=== PATIENT | female | born 1955 | race Caucasian/White ===

== ENCOUNTER → 2020-07-05 17:28 | Outpatient (CLI) | payer MEDICARE, SELFPAY ==
[2020-07-05 19:33] LABS: Coronavirus 19 IgG Antibody Negative (Negative); Coronavirus 19 IgM Antibody Negative (Negative)
== END ==
PROVIDERS: Visit Provider Specialist
DX: Z01.818 Encounter for other preprocedural examination (principal); Z20.822 Contact with and (suspected) exposure to COVID-19
CPT/HCPCS: 36415; 86328

== ENCOUNTER → 2020-07-07 19:53 | Outpatient (CLI) | payer MEDICARE, SELFPAY | PROVIDERS: PCP Internal Medicine Infectious Disease; Visit Provider Specialist | DX: G47.33 Obstructive sleep apnea (adult) (pediatric) (principal) | CPT/HCPCS: 95811 ==

== ENCOUNTER → 2020-09-14 17:46 | Outpatient (CLI) | payer MEDICARE, SELFPAY | PROVIDERS: PCP Nurse Practitioner Family; Visit Provider Nurse Practitioner Family | DX: G47.33 Obstructive sleep apnea (adult) (pediatric) (principal) | CPT/HCPCS: 94762 ==

== ENCOUNTER → 2021-08-08 15:08 | Outpatient (CLI) | payer MEDICARE, SELFPAY ==
--- NOTE | 2021-08-08 15:08 | CT_ITS ---
FINAL REPORT TECHNIQUE: Thin section axial CT images of the facial bones and sinuses were obtained without contrast. Coronal reformatted images were also obtained.This study was performed with techniques to keep radiation doses as low as reasonably achievable, (ALARA). Individualized dose reduction techniques using automated exposure control or adjustment of mA and/or kV according to the patient''''s size were employed. CLINICAL HISTORY: maxilly sinus pain FINDINGS: There is no evidence of mucosal thickening. No fluid levels are identified. The ostiomeatal units have an unremarkable appearance. There are bilateral rosa bullosa as a variant. There is mild leftward nasal septal deviation. No fracture or acute bony abnormality is identified. IMPRESSION: No focal abnormality identified of the sinuses. Reviewed, Interpreted and Dictated by Chance Mcmillan III, MD Transcribed by Keith Candelaria Authenticated by Chance Mcmillan III, MD on 08/08/2021 04:37:14 PM [facility]
== END ==
PROVIDERS: PCP Internal Medicine Infectious Disease; Visit Provider Otolaryngology
DX: J32.0 Chronic maxillary sinusitis (principal); R49.0 Dysphonia
CPT/HCPCS: 70486

== ENCOUNTER 2023-08-24 20:48 | Observation (INO) | payer MEDICARE, SELFPAY ==
[2023-08-24 21:09] VITALS: BMI 36.6
--- NOTE | 2023-08-24 21:12 | XR_ITS ---
PROCEDURE INFORMATION: Exam: XR Chest Exam date and time: 08/24/2023 9:26 PM Age: 67 years old Clinical indication: Shortness of breath; Additional info: SOA TECHNIQUE: Imaging protocol: Radiologic exam of the chest. Views: 2 views. Total images: 4 COMPARISON: CR CXR1VP XR chest portable 12/22/2017 10:09 PM FINDINGS: Tubes, catheters and devices: Status post cardiac loop recorder. Lungs: Diffuse accentuation of bronchovascular markings including bronchial wall thickening and suspect interstitial edema concerning for acute CHF/volume overload. No airspace consolidation. Pleural spaces: Small bilateral pleural effusions. No pneumothorax. Heart/Mediastinum: Unremarkable. No cardiomegaly. No mediastinal widening or hilar enlargement. Bones/joints: Osteopenia. Moderate degenerative changes thoracic spine. Soft tissues: Breast attenuation artifact. Other findings: Rotation to the right. IMPRESSION: 1. Acute CHF/volume overload. 2. Small bilateral pleural effusions.
[2023-08-24 21:15] VITALS: BP 181/54; PULSE 73; RESP 19; TEMP 37.2; O2SAT 96; BMI 48.8
--- NOTE | 2023-08-24 21:17 | ECG_ITS ---
APPROVED REPORT Exam: Resting ECG HR:68 bpm ECG Measurements Heart Rate 68 AXES WI 174 P 38 QRSd 86 QRS 41 QT 425 T -14 QTc 442 Conclusion SINUS RHYTHM NONSPECIFIC T-WAVE ABNORMALITY BORDERLINE ECG Electronically signed by : MACKENZIE VELAZQUEZ, 08/25/2023 05:50:28
--- NOTE | 2023-08-24 21:21 | ECG_ITS ---
APPROVED REPORT Exam: Resting ECG HR:68 bpm ECG Measurements Heart Rate 68 AXES AK 169 P 47 QRSd 88 QRS 31 QT 413 T 65 QTc 429 Conclusion SINUS RHYTHM LOW QRS VOLTAGE IN PRECORDIAL LEADS [QRS DEFLECTION < 1.0 mV IN CHEST LEADS] NONSPECIFIC T-WAVE ABNORMALITY BORDERLINE ECG Electronically signed by : KENNY MANN, 08/25/2023 01:25:00
[2023-08-24 21:49] LABS: Basophils # 0.1 K/mm3 (0-0.2); Basophils % 0.8 % (0.1-2.0); Eosinophils # 0.3 K/mm3 (0.0-0.4); Eosinophils % 2.6 % (0.1-12.0); Hematocrit 39.8 % (37.0-47.0); Hemoglobin 12.6 g/dL (12.2-16.2); Lymphocytes # 1.7 K/mm3 (0.7-4.5); Lymphocytes % 14.3 % (10-50); Mean Corpuscular HGB Conc 31.6 g/dL (31.8-35.4); Mean Corpuscular Hemoglobin 28.2 pg (27.0-31.2); Mean Corpuscular Volume 89.3 fl (81-99); Mean Platelet Volume 8.5 fl (7.4-10.4); Monocytes # 0.6 K/mm3 (0.1-1.0); Monocytes % 4.8 % (1.7-9.3); Neutrophils # 9.4 K/mm3 (1.8-7.8); Neutrophils % 77.5 % (37.0-80.0); Platelet Count 253 K/mm3 (142-424); Red Blood Count 4.46 M/mm3 (4.20-5.40); Red Cell Distribution Width 14.4 % (11.5-17.5); White Blood Count 12.2 K/mm3 (4.8-10.8)
[2023-08-24 21:54] LABS: Chloride 103 mmol/L (98-107)
[2023-08-24 21:55] LABS: Potassium 4.1 mmoL/L (3.5-5.1); Sodium 136 mmol/L (136-145)
[2023-08-24 21:57] LABS: Blood Urea Nitrogen 13 mg/dl (7-17); Creatinine Clearance Estimated 38 mL/min (50-200); Estimated Glomerular Filt Rate 62 ml/min (>60); GFR (African American) 75 ML/MIN (>60)
[2023-08-24 21:58] LABS: Alanine Aminotransferase 39 U/L (12-78); Albumin Level 3.7 g/dl (3.5-5.0); Albumin/Globulin Ratio 1.4 (1.1-1.8); Alkaline Phosphatase 104 U/L (38-126); Anion Gap 10.1 mEq/L (5-15); Aspartate Amino Transferase 46 U/L (14-36); Bilirubin,Total 1.2 mg/dl (0.2-1.3); Calcium 8.8 mg/dl (8.4-10.2); Carbon Dioxide 27 mmol/L (22.0-30.0); Globulin 2.6 g/dL (1.3-3.2); Glucose 247 mg/dl (74-100); Total Protein,Serum 6.3 g/dl (6.3-8.2)
[2023-08-24 22:09] LABS: NT Pro Brain Natriuretic Pep. 1340 pg/mL (0-125)
[2023-08-24 22:15] LABS: Troponin I < 0.01 ng/ml (0.00-0.034)
[2023-08-24 22:16] LABS: T4 (Thyroxine) 9.1 ug/dl (5.53-11.0)
--- NOTE | 2023-08-24 22:20 | PC.NURSE ---
Pt originally in room 12, went in to swab for COVID/flu to find pt irritated and anxious. Stated she needed to urinate before I did anything. Directed her to restroom, hat placed in [facility] for UA. When pt came out she was diaphoretic and very SOA, offered w/c she refused sat back in recliner, pulse ox placed on pt she was 72% on room air. Immediately placed her back in w/c and moved her to bed #3. Dr Byers at bedside.
[2023-08-24 22:29] LABS: Thyroid Stimulating Hormone 1.14 uIU/mL (0.465-4.68)
[2023-08-24 22:40] VITALS: RESP 18; RESP 27
[2023-08-24 22:40] LABS: Coronavirus 19, PCR Not Detected (NotDetected); Influenza A, PCR Not Detected (NotDetected); Influenza B, PCR Not Detected (NotDetected)
[2023-08-24 22:41] VITALS: BP 171/61; PULSE 68; RESP 20; TEMP 36.6; O2SAT 95
[2023-08-24] MEDS: FUROSEMIDE 100MG/10ML VIAL 80 MG IV (22:49)
[2023-08-24] MEDS: NITROGLYCERIN IN 5 % DEXTROSE 250 ML 1.5 MG IV (22:49)
--- NOTE | 2023-08-24 22:55 | PC.NURSE ---
Pure wick cath placed on pt d/t 80mg Lasix given and she is on BiPap
--- NOTE | 2023-08-24 23:34 | PC.NURSE ---
Pt UOP 800ml
[2023-08-25] VITALS (8 sets, daily range): BP systolic 119–162; BP diastolic 39–72; PULSE 50–80; RESP 15–21; TEMP 36.4–37; O2SAT 93–100; BMI 50.0
--- NOTE | 2023-08-25 00:22 | PC.NURSE ---
pt to floor via stretcher at this time
--- NOTE | 2023-08-25 00:40 | HMH.EDCP ---
Discharge Plan Disposition Patient Disposition: Admitted Clinical Impressions Clinical Impression: Flash pulmonary edema, Acute exacerbation of CHF (congestive heart failure), Hypertensive emergency Discharge ED Provider: Leni Byers HPI General Chief Complaint: Shortness of Breath/Dyspnea Stated Complaint: SOA Time Seen by Provider: 08/24/23 22:22 Mode of Arrival: Family Vehicle Source of Information: Patient Limitations: No Limitations Description of Symptoms (Recalled from ER Triage Doc. by RN): shortness of air that has gotten worse today, patient states her chest is causing discomfort and she is aching all over. h/o chf. History of Present Illness HPI narrative: This patient is a 67-year-old female with a history of CHF, hypertension, hyperlipidemia, obesity, and diabetes presenting to the emergency department for evaluation with concern for shortness of breath. Patient states that she has had progressively worsening dyspnea on exertion for the last several days, but acutely she got more short of breath today. She states she is having chest pressure and heaviness and feels uncomfortable all over. She notes this happened in the past and she had to be put on BiPAP and given Lasix in the hospital. She states that it was because of her heart failure. She denies any fevers, cough, vomiting, change in bowel movements, calf pain or swelling, or other concerns. Related Data Home Medications Medication Instructions Recorded Confirmed aspirin 81 mg tablet,delayed 81 mg PO ONCE Supplement 04/16/17 07/19/21 release (Aspir-) carvedilol 25 mg tablet 25 mg PO BID Supplement 04/16/17 07/19/21 cholecalciferol (vitamin D3) 50 2,000 unit PO ONCE Supplement 04/16/17 07/19/21 mcg (2,000 unit) capsule acetaminophen 325 mg capsule 325 mg PO QID PRN 04/08/20 07/19/21 (Tylenol) citalopram 20 mg tablet 20 mg PO DAILY 04/08/20 07/19/21 potassium chloride 20 mEq 20 meq PO DAILY 04/08/20 07/19/21 tablet,extended release rosuvastatin 5 mg tablet 5 mg PO DAILY 04/08/20 07/19/21 tizanidine 4 mg tablet 4 mg PO TID PRN 04/08/20 07/19/21 insulin lispro 100 unit/mL 28 unit SQ TID DM 06/03/20 07/19/21 subcutaneous cartridge (Humalog U-100 Insulin) losartan 100 mg tablet 100 mg PO ONCE Supplement 12/30/20 07/19/21 magnesium 200 mg tablet 400 mg PO DAILY 12/30/20 07/19/21 nystatin 100,000 unit/gram topical 1 applic topical PRN 12/30/20 07/19/21 powder esomeprazole magnesium 40 mg 40 mg PO DAILY 08/25/23 08/25/23 capsule,delayed release (Nexium) insulin degludec 100 unit/mL (3 65 unit SQ HS 08/25/23 08/25/23 mL) subcutaneous pen (Tresiba FlexTouch U-100 insulin) Allergies Allergy/AdvReac Type Severity Reaction Status Date / Time betamethasone [BETAMETHASONE] Allergy Severe S-SWELLS-OR Verified 07/19/21 15:41 AL/THROAT morphine [MORPHINE] Allergy Severe S-DIFF. Verified 07/19/21 15:41 BREATHING SULFONE Allergy Intermediate NA-NAUSEA Uncoded 04/16/17 11:12 [facility] Disclaimer: The information contained in this section may have been updated after the patient was seen, as this information can be updated by other users. Social History Smoking Status: Unknown if ever smoked alcohol intake: current alcohol intake frequency: a few times a month substance use type: denies use current occupational status: disabled Travel in the last 8 weeks: None household members: spouse housing: house ROS Obtained: Yes All systems reviewed & no additional complaints except as documented Physical Exam General General appearance: alert and obese Comment: In mild respiratory distress with tachypnea, wheezing, and increased work of breathing Head Head exam: atraumatic and normocephalic Eye Eye exam: Present normal appearance, PERRL and EOMI ENT ENT exam: Present normal exam, normal oropharynx, mucous membranes moist and normal external ear exam Neck Neck exam: Present normal inspection, full ROM and trachea midline; Absent tenderness Chest Chest inspection: Present normal inspection and symmetric chest wall rise; Absent tenderness Respiratory Respiratory exam: Present respiratory distress, wheezes, accessory muscle use and prolonged expiratory phase; Absent stridor Cardiovascular Cardiovascular exam: Present regular rate and normal rhythm Abdominal Exam Abdominal exam: Present soft; Absent distention, tenderness or guarding Extremities Exam Extremities exam: Present normal inspection, full ROM and normal capillary refill; Absent tenderness or edema Back Exam Back exam: Present normal inspection and full ROM; Absent tenderness Neurological Exam Neurological exam: Present alert, oriented X3, CN II-XII intact and normal gait; Absent motor sensory deficit Psychiatric Psychiatric exam: Present normal affect and normal mood Skin Skin exam: Present warm and dry HEART Score HEART Score HEART Score assessment performed?: Yes History (anamnesis): Moderately suspicious ECG: Normal Age: >65 years Risk factors: Atherosclerosis history Troponin: </= normal limit HEART Score: 5 Critical Care Critical Care Time Critical Care Time: Yes Attestation: On 08/24/23, the high probability of a clinically significant, sudden or life threatening deterioration of the following system(s) required my full and direct attention, intervention and personal management. The time I documented below is in addition to time spent performing reported procedures but includes the following listed in this critical care notation. Total Time Total Critical Care Time: 45 Medical Decision Making Medical Records Medical records reviewed: Yes I reviewed the patient's medical records. Tan Inquiry Pt receiving controlled substance: No Vital Signs Vital Signs: 08/24/23 21:15 08/24/23 22:41 08/25/23 00:34 Temperature 98.9 F 97.9 F 98.4 F Temperature Source Oral Oral Oral Pulse Rate 68 Pulse Rate [Right Brachial] 73 77 Respiratory Rate 19 20 17 Blood Pressure 171/61 H Blood Pressure [Right Arm] 181/54 H 119/39 L Blood Pressure Mean [Right Arm] 96 65 Blood Pressure Source Automatic Cuff Blood Pressure Source [Right Arm] Automatic Cuff Automatic Cuff Blood Pressure Position Supine Blood Pressure Position [Right Arm] Sitting 02 Sat by Pulse Oximetry 96 95 100 Oxygen Delivery Method Room Air BiPAP Nasal Cannula Oxygen Flow Rate (LPM) 3 Lab Data Labs: Lab Results 08/24/23 21:31: WBC 12.2 H, RBC 4.46, Hgb 12.6, Hct 39.8, MCV 89.3, MCH 28.2, MCHC 31.6 L, RDW 14.4, Plt Count 253, MPV 8.5, Neut % (Auto) 77.5, Lymph % (Auto) 14.3, Wythe % (Auto) 4.8, Eos % (Auto) 2.6, Baso % (Auto) 0.8, Neut # (Auto) 9.4 H, Lymph # (Auto) 1.7, Wythe # (Auto) 0.6, Eos # (Auto) 0.3, Baso # (Auto) 0.1, Sodium 136, Potassium 4.1, Chloride 103, Carbon Dioxide 27, Anion Gap 10.1, BUN 13, Creatinine 0.90, Estimated Creat Clear 38, Estimated GFR 62, Est GFR ( Amer) 75, Glucose 247 H, Calcium 8.8, Total Bilirubin 1.2, AST 46 H, ALT 39, Alkaline Phosphatase 104, Troponin I < 0.01, NT-Pro-B Natriuret Pep 1340 H, Total Protein 6.3, Albumin 3.7, Globulin 2.6, Albumin/Globulin Ratio 1.4, TSH 1.14, Thyroxine (T4) 9.1 08/24/23 22:25: SARS-CoV-2 (PCR) Not detected, Influenza A Untype (PCR) Not detected, Influenza Type B (PCR) Not detected 08/24/23 21:31 08/24/23 21:31 Response Orders (Tests/Meds): ED MEDICATIONS Generic Name Dose Route Start Last Admin Trade Name Freq PRN Reason Stop Dose Admin Nitroglycerin/Dextrose 250 mls @ 1.5 mls/hr 08/24/23 22:45 08/24/23 23:55 Nitroglycerin 50mg/250ml D5w IV 09/23/23 22:44 0 mcg/min .Q24H BRENNA 0 mls/hr Titration Protocol 5 MCG/MIN Discontinued Medications Generic Name Dose Route Start Last Admin Trade Name Freq PRN Reason Stop Dose Admin Furosemide 80 mg 08/24/23 22:38 08/24/23 22:49 Furosemide 100mg/10ml Vial IV 08/24/23 22:39 80 mg ONCE ONE Administration ORDERS Category Date Time Status Chest XR 2 view (NOT portable) [XR chest 2V] Stat Exams 08/24/23 21:12 Completed BNP [NT Pro Brain Natriuretic Pep.] Stat Lab 08/24/23 21:31 Completed Complete Blood Count Auto Diff Stat Lab 08/24/23 21:31 Completed Comprehensive Metabolic Panel Stat Lab 08/24/23 21:31 Completed Rapid PCR Covid and Flu A/B Stat Lab 08/24/23 22:25 Completed T4 (Thyroxine) Stat Lab 08/24/23 21:31 Completed Thyroid Stimulating Hormone Stat Lab 08/24/23 21:31 Completed Trop I [Troponin I] Stat Lab 08/24/23 21:31 Completed Troponin I Q3H Lab 08/25/23 00:30 Received Troponin I Q3H Lab 08/25/23 03:15 Ordered ECG Data Tracing #1: Attestation: I reviewed this ECG and interpreted as documented below: ECG Narrative: Normal sinus rhythm with a ventricular rate of [address] changes concerning for ischemia. Normal axis and intervals. ECG initial impression date: 08/25/23 ECG initial impression time: 21:22 MDM Narrative Medical Decision Narrative: In summary, this patient is a 67-year-old female presenting to the Emergency Department for evaluation of chest pressure, wheezing, and shortness of breath. Differential diagnoses considered include but are not limited to CHF exacerbation, COPD, pneumonia, asthma, ACS, dysrhythmia. Ruling out the most morbid conditions drove assessment. It should be noted patient's history includes CHF which is not at goal therapy. This complicates all aspects of care by increasing patient's risk for morbidity. On exam, the patient is in mild distress with increased work of breathing and wheezing. She is hypoxic on room air with oxygen saturation in the 70s. She is severely hypertensive with systolics greater than 200s. Given this, high concern for flash pulmonary edema in the setting of hypertensive emergency workup included BC, CMP, troponin, BNP, chest x-ray, EKG. EKG is reassuring. Patient was taken to room and placed on BiPAP as well as started on a nitroglycerin drip and given 80 mg of IV Lasix for management of pulmonary edema. I independently interpreted x-ray prior to the radiologist read and noted gross pulmonary edema. Please see their read for final interpretation. Labs were obtained that demonstrated elevated BNP without other acute concerns. On multiple subsequent reassessments while on BiPAP, patient continued to have improvement in her respiratory status. She was doing well on this and her blood pressure also improved after nitro drip. Blood pressures remained in the 140s to 150s systolic. At this time, feel she would benefit from admission for continued management. I had an interactive discussion with the hospitalist who admitted the patient for further evaluation and management.
--- OUTSIDE RECORDS SUMMARY | 2023-08-25 00:51 | XMS_ITS | Patient Health Record ---
Author Name Unknown Organization [facility] Address [address] [place] [address] Care Team Providers Care Truck Hop Name Role Phone SUSIEGARY DAMONNDRE Unavailable [phone] BETSY RICHARDS Unavailable Unavailable Florian Holguin Unavailable [phone] Allergies Allergen (clinical drug ingredient) Drug/Non Drug Allergy documented on EMR Reaction Allergy Type Onset Date Status morphine Morphine Unknown Drug Allergy Active sulfacetamide Sulfacetamide Unknown Drug Allergy Active Reason For Referral No Information Problems Problem Type SNOMED Code ICD Code Onset Dates Problem Status W/U Status Risk Notes Problem Diastolic heart failure (125369447) CHF, diastolic (I50.30) Active confirmed Problem Gastroesophageal reflux disease (740670459) GERD without esophagitis (K21.9) Active confirmed Problem 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) Active confirmed Problem Obstructive sleep apnea syndrome (43655429) MAYELIN (obstructive sleep apnea) (G47.33) Active confirmed Problem Dysphagia (56025008) Dysphagia, unspecified type (R13.10) Active confirmed Vital Signs Heart Rate 71 /min 05/30/2023 Temperature 96.4 degrees Fahrenheit 05/30/2023 Respiratory Rate 15 /min 05/30/2023 Oximetry 96 % 05/30/2023 Blood pressure diastolic 62 mm Hg 05/30/2023 Height 60 in 05/30/2023 Blood pressure systolic 124 mm Hg 05/30/2023 Weight 249.5 lbs 05/30/2023 BMI 48.72 kg/m2 05/30/2023 Encounters Encounter Location Date Provider Diagnosis [facility] [place] [address] [place] [address] 05/30/2023 Florian Holguin Acute bronchitis, unspecified J20.9 ; CHF, diastolic I50.30 ; 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 I63.211 ; GERD without esophagitis K21.9 ; Dysphagia, unspecified type R13.10 and MAYELIN (obstructive sleep apnea) G47.33 [facility], [facility] [address] [place] [place] [address] 06/20/2023 BETSY RICHARDS Assessments Encounter Date Diagnosis (ICD Code) Assessment Notes Treatment Notes Treatment Clinical Notes 05/30/2023 CHF, diastolic (ICD-10 - I50.30) 05/30/2023 Acute bronchitis, unspecified (ICD-10 - J20.9) M/L 05/04 ASPIRATION AND REFLUX CONTINUE ADVIAR BID INH OBTAIN PFT'S 05/30/2023 Cerebral infarction due to unspecified occlusion [...] COMPLIANT FOLLOWS WITH PCP Plan Of Treatment Pending Test Test Name Order Date PFTS with DLCO 05/30/2023 Insurance Providers Payer Name Payer Address Payer Phone Subscriber Number Group Number Insured Name Patient Relationship to Insured Coverage Start Date Coverage End Date [facility] [address] [place] [address] [phone] [id number] [facility] [id number] NOY COOK Self - patient is the insured Medical (General) History Medical History History ICD Code DIABETES TYPE 2 HEART DISEAS HYPERTENSION COPD STROKE ANXIETY ESSENTIAL TREMOIS DEPRESSION WATER RETENSION SINUSITIS GERD SLEEP APNEA HIGH CHOLESTEROL THALAMIC PAIN SYNDROME MOVEMENT DISORDER Surgical History Surgery Date(Month/Year) TONSILLECTOMY WISDOM TEETH TUBAL LIGATION HEART CATH
--- OUTSIDE RECORDS SUMMARY | 2023-08-25 00:51 | XMS_ITS ---
Author Name Unknown Address [address] [facility] [place] [address] Phone Organization [facility] Address [address] [facility] [place] [address] Phone Care Team Providers Care Machine Package Sealer Name Role Phone DRE RAZO, [place] Unavailable [phone] Plan of Treatment No Plan of Treatment Recorded Assessments Includes: Assessments for all patient encounters No Assessments Recorded Medical Equipment - Implanted Devices Includes: Current and historical Devices No Medical Equipment Recorded Medications Administered Includes: Administered Medications in patient's chart No Administered Medications Recorded Results Includes: Results from 08/24/2022 through 08/25/2023 No Results Recorded For Specified Dates History of Present Illness History of Present Illness not supported for this document type No History of Present Illness Recorded Social History No Social History Recorded - Smoking Status Unknown Procedures and Surgical History Includes: Procedures from 08/24/2022 through 08/25/2023 Procedures Code Diagnosis Performing Provider Service Location Service Date ECG ROUTINE ECG W/LEAST 12 LDS I&R ONLY 24599 Abnormal electrocardiogram [ECG] [EKG] CHICO ERICKSON MD [facility] 05/01/2023 Last Documented On 4 11:40PM ; [facility] ECG ROUTINE ECG W/LEAST 12 LDS I&R ONLY 90681 Abnormal electrocardiogram [ECG] [EKG] CHICO ERICKSON MD [facility] 04/30/2023 Last Documented On 4 11:40PM ; [facility] Medical History Includes: Medical History in patient's chart No Medical History Recorded Family History Includes: Family History in patient's chart No Family History Recorded Review of Systems Review of Systems not supported for this document type No Review of Systems Recorded Mental Status No Mental Status Recorded Functional Status No Functional Status Recorded Physical Exam Physical Exam not supported for this document type No Physical Exam Recorded Insurance Includes: Active Insurance Policies Plan Name Member ID Group # Subscriber Relationship Effect blaine Dates 1 - [facility] [id number] NOY COOK Se lf Clinical Notes Includes: Signed Clinical Notes starting from 03/12/2022 No Clinical Notes Recorded
--- OUTSIDE RECORDS SUMMARY | 2023-08-25 00:51 | XMS_ITS ---
Care Plan - [facility] Created on: August 25, 2023 NOY COOK : 1955 Sex: Female Author Name Unknown Address [address] [place] [address] Phone Organization [facility] Address [address] [place] [address] Phone Care Team Providers Care Gyn Physician Name Role Phone DRE RAZO, [place] Unavailable [phone]
[2023-08-25 01:05] LABS: Troponin I < 0.01 ng/ml (0.00-0.034)
--- NOTE | 2023-08-25 01:13 | P.HP_ITS ---
History of Present Illness *Admission Date: 08/24/23 *Reason for visit:: Shortness of air *History of present illness: This is a 67-year-old female who presents to [facility] emergency department with concerns of shortness of air over several days. Her past medical history is significant for MAYELIN with home BiPAP and identified congestive heart failure with preserved ejection fraction. She reports previous care with [facility] cardiology. She describes recent increase in stressors with her 's rectal cancer illness, frequent travel to [place] and diet changes. She describes shortness of air over several days not improving with home diuretic dosing. She denies associated fever, chills, cough, hemoptysis or sputum production. She denies retrosternal chest pain, acute dyspnea at rest or confusion. She endorses shortness of air with activity . In the ED her presenting blood pressure was elevated her chest imaging was consistent with congestive heart failure and her BNP was 1340. [facility] Medical History (Updated 08/25/23 @ 01:19 by Mook Petersen MD) BMI 50.0-59.9, adult Stroke Congestive heart failure Hypertension Sleep apnea Diabetes mellitus Surgical History (Updated 08/25/23 @ 01:04 by Ly Dotson RN) History of right hemicolectomy History of laparoscopic cholecystectomy History of hernia repair History of hysterectomy Family History (Updated 08/25/23 @ 01:04 by Ly Dotson RN) Other Colon cancer Heart disease Pancreatic cancer Social History (Updated 08/25/23 @ 01:21 by Mook Petersen MD) Smoking Status: Never smoker alcohol intake: never substance use type: denies use current occupational status: disabled Travel in the last 8 weeks: Inside the [place] household members: spouse housing: house marital status: number of children: 3 eliseo/adventist: Denominational Review of Systems Review of Systems Review of systems:: pertinent systems reviewed and negative unless documented below Meds Home Medications and Allergies Home Medications Medication Instructions Recorded Confirmed Type aspirin 81 mg tablet,delayed 81 mg PO DAILY Supplement 04/16/17 08/25/23 History release (Aspir-) carvedilol 25 mg tablet 12.5 mg PO BID Supplement 04/16/17 08/25/23 History cholecalciferol (vitamin D3) 50 5,000 unit PO HS Supplement 04/16/17 08/25/23 History mcg (2,000 unit) capsule acetaminophen 325 mg capsule 650 mg PO QID PRN pain/fever 04/08/20 08/25/23 History (Tylenol) citalopram 20 mg tablet 30 mg PO DAILY 04/08/20 08/25/23 History potassium chloride 20 mEq 30 meq PO DAILY 04/08/20 08/25/23 History tablet,extended release rosuvastatin 5 mg tablet 5 mg PO DAILY 04/08/20 08/25/23 History tizanidine 4 mg tablet 4 mg PO TID PRN muscle spasms 04/08/20 08/25/23 History insulin lispro 100 unit/mL 55 unit SQ TID DM 06/03/20 08/25/23 History subcutaneous cartridge (Humalog U-100 Insulin) losartan 100 mg tablet 50 mg PO ONCE Supplement 12/30/20 08/25/23 History magnesium 200 mg tablet 400 mg PO DAILY 12/30/20 08/25/23 History nystatin 100,000 unit/gram topical 1 applic topical BID 12/30/20 08/25/23 History powder esomeprazole magnesium 40 mg 40 mg PO BID 08/25/23 08/25/23 History capsule,delayed release (Nexium) insulin degludec 100 unit/mL (3 65 unit SQ HS 08/25/23 08/25/23 History mL) subcutaneous pen (Tresiba FlexTouch U-100 insulin) New Prescriptions to Start Prescriptions: Allergies Allergy/AdvReac Type Severity Reaction Status Date / Time betamethasone [BETAMETHASONE] Allergy Severe S-SWELLS-OR Verified 07/19/21 15:41 AL/THROAT morphine [MORPHINE] Allergy Severe S-DIFF. Verified 07/19/21 15:41 BREATHING SULFONE Allergy Intermediate NA-NAUSEA Uncoded 04/16/17 11:12 Exam Data for Last 24 hours Vital signs and Labs for Last 24 Hours: Temp Pulse Resp BP Pulse Ox O2 Del Method O2 Flow Rate 97.9 F 68 20 162/72 H 100 BiPAP 3 08/25/23 00:40 08/25/23 00:40 08/25/23 00:40 08/25/23 00:40 08/25/23 00:34 08/25/23 00:40 08/25/23 00:34 FiO2 21 08/24/23 22:40 Laboratory Results - last 24 hr 08/24/23 21:31: WBC 12.2 H, RBC 4.46, Hgb 12.6, Hct 39.8, MCV 89.3, MCH 28.2, MCHC 31.6 L, RDW 14.4, Plt Count 253, MPV 8.5, Neut % (Auto) 77.5, Lymph % (Auto) 14.3, Edmonson % (Auto) 4.8, Eos % (Auto) 2.6, Baso % (Auto) 0.8, Neut # (Auto) 9.4 H, Lymph # (Auto) 1.7, Edmonson # (Auto) 0.6, Eos # (Auto) 0.3, Baso # (Auto) 0.1, Sodium 136, Potassium 4.1, Chloride 103, Carbon Dioxide 27, Anion Gap 10.1, BUN 13, Creatinine 0.90, Estimated Creat Clear 38, Estimated GFR 62, Est GFR ( Amer) 75, Glucose 247 H, Calcium 8.8, Total Bilirubin 1.2, AST 46 H, ALT 39, Alkaline Phosphatase 104, Troponin I < 0.01, NT-Pro-B Natriuret Pep 1340 H, Total Protein 6.3, Albumin 3.7, Globulin 2.6, Albumin/Globulin Ratio 1.4, TSH 1.14, Thyroxine (T4) 9.1 08/24/23 22:25: SARS-CoV-2 (PCR) Not detected, Influenza A Untype (PCR) Not detected, Influenza Type B (PCR) Not detected 08/25/23 00:30: Troponin I < 0.01 I & O for Last 24 hours: Intake & Output 08/22/23 08/23/23 08/24/23 08/25/23 23:59 23:59 23:59 23:59 Intake Total 2.250 / 2.250 Balance 2.250 / 2.250 Weight 113.398 kg 115.53 kg Constitutional Constitutional: no acute distress, morbidly obese, chronically ill appearing and cooperative *Routine HEENT Exam Head: Present normocephalic Eye: Present EOMI and PERRL ENT: Present mucous membranes moist *Routine Neck Exam Neck: Present supple; Absent JVD or lymphadenopathy *Routine Respiratory Exam Respiratory: Present rhonchi, crackles, normal respiratory effort and able to speak in complete sentences *Routine Cardiovascular Exam Cardiovascular: Present RRR, Normal S1 and Normal S2; Absent JVD *Routine Abdominal Exam Abdominal: Present soft and normoactive bowel sounds; Absent tenderness *Routine Rectal Exam Rectal:: deferred *Routine Genitalia Exam Genitalia:: deferred *Routine Extremities Exam Extremities: Present edema, full ROM and pulses intact; Absent cyanosis *Routine Skin Exam Skin: Present intact; Absent rash *Routine Neurological Exam Neurological: Present alert, oriented X3, moving all extremities, vision grossly intact, hearing grossly intact and normal speech; Absent sensory deficit or motor deficit Routine Psychiatric Exam Psychiatric: Present normal affect, normal thought process, cooperative, good insight and good judgment Assessment and Plan *Assessment and plan (1) Acute on chronic heart failure with preserved ejection fraction (HFpEF): Status: Acute Category: Medical Code(s): I50.33 - Acute on chronic diastolic (congestive) heart failure (2) MAYELIN (obstructive sleep apnea): Status: Acute Category: Medical Code(s): G47.33 - Obstructive sleep apnea (adult) (pediatric) (3) Obesity hypoventilation syndrome: Status: Acute Category: Medical Code(s): E66.2 - Morbid (severe) obesity with alveolar hypoventilation (4) Diabetes mellitus: Status: Acute Category: Medical Code(s): E11.9 - Type 2 diabetes mellitus without complications Plan This is a 67-year-old female with previous cardiology care at [facility]. She presents to the ED and objective evaluation identifies concerns for heart failure exacerbation. Problems addressed as follows: Acute on chronic heart failure with preserved ejection fraction Telemetry monitoring Cardiology consultation Echocardiogram ordered ED chest x-ray with CHF Admit BNP elevated Troponin negative ED ECG sinus rhythm rate 68 with QTc 429 MS Accurate I's and O's Sodium and fluid restriction Routine weights IV loop diuretic therapy Drug therapy requiring intensive monitoring for toxicity Routine electrolytes, magnesium and creatinine Beta-selvin therapy SGLT2 inhibitor therapy ARNI therapy Aldosterone antagonist therapy Outpatient follow-up with cardiology to discuss GLP-1 agonist MAYELIN/BMI 50/OHS Pulse oximetry monitoring Oxygen therapy to maintain appropriate oxygen saturations NIPPV therapy Outpatient follow-up with pulmonology Nutritional counseling Calorie appropriate diet Diabetes Routine blood sugar monitoring Hemoglobin A1c ordered Basal insulin therapy Sliding scale insulin therapy SGLT2 inhibitor therapy Controlled carbohydrate diet VTE prophylaxis: Lovenox CODE STATUS: Full code POA: Art-
[2023-08-25 04:23] LABS: Troponin I < 0.01 ng/ml (0.00-0.034)
[2023-08-25] MEDS: humaLOG 100 UNITS/ML 10ML VIAL (SSI) SQ (06:00)
[2023-08-25 06:02] LABS: POC Glucose,Bedside 268 (70-110)
[2023-08-25 07:53] LABS: Anion Gap 13.1 mEq/L (5-15); Blood Urea Nitrogen 10 mg/dl (7-17); Calcium 8.5 mg/dl (8.4-10.2); Carbon Dioxide 30 mmol/L (22.0-30.0); Chloride 98 mmol/L (98-107); Creatinine Clearance Estimated 36 mL/min (50-200); Estimated Glomerular Filt Rate 62 ml/min (>60); GFR (African American) 75 ML/MIN (>60); Glucose 262 mg/dl (74-100); Magnesium 1.7 mg/dl (1.6-2.3); Potassium 3.1 mmoL/L (3.5-5.1); Sodium 138 mmol/L (136-145)
[2023-08-25 08:08] LABS: Basophils # 0.1 K/mm3 (0-0.2); Basophils % 0.8 % (0.1-2.0); Eosinophils # 0.2 K/mm3 (0.0-0.4); Eosinophils % 1.8 % (0.1-12.0); Hemoglobin 12.7 g/dL (12.2-16.2); Lymphocytes # 2.7 K/mm3 (0.7-4.5); Lymphocytes % 24.9 % (10-50); Mean Corpuscular HGB Conc 31.7 g/dL (31.8-35.4); Mean Corpuscular Hemoglobin 28.7 pg (27.0-31.2); Mean Corpuscular Volume 90.6 fl (81-99); Mean Platelet Volume 8.5 fl (7.4-10.4); Monocytes # 0.8 K/mm3 (0.1-1.0); Monocytes % 7.6 % (1.7-9.3); Neutrophils # 6.9 K/mm3 (1.8-7.8); Neutrophils % 64.7 % (37.0-80.0); Platelet Count 255 K/mm3 (142-424); Red Blood Count 4.42 M/mm3 (4.20-5.40); Red Cell Distribution Width 14.3 % (11.5-17.5); White Blood Count 10.7 K/mm3 (4.8-10.8)
[2023-08-25] MEDS: FUROSEMIDE 40MG/4ML VIAL 40 MG IV (08:55)
[2023-08-25] MEDS: SPIRONOLACTONE 25MG TABLET 25 MG PO (08:55)
[2023-08-25] MEDS: SACUBITRIL/VALSARTAN 24-26MG TABLET 1 EACH PO (08:55)
[2023-08-25] MEDS: ASPIRIN 81MG CHEWABLE TABLET 81 MG PO (08:55)
[2023-08-25] MEDS: CARVEDILOL 25MG TABLET 25 MG PO (08:55)
[2023-08-25] MEDS: ENOXAPARIN 40MG/0.4ML SYRINGE 40 MG SQ (08:56)
[2023-08-25] MEDS: PANTOPRAZOLE 40MG TABLET 40 MG PO (08:56)
[2023-08-25] MEDS: CITALOPRAM 20MG TABLET 20 MG PO (08:56)
[2023-08-25] MEDS: EMPAGLIFLOZIN 10MG TABLET 10 MG PO (08:56)
[2023-08-25 09:40] LABS: Hemoglobin A1C 8.9 % (4.0-6.0)
--- NOTE | 2023-08-25 09:56 | HMH.PHAINT1 ---
Pharmacy Intervention Comments: MEDICATION RECONCILIATION COMPLETED ON PATIENT USING EXTERNAL FILL HISTORY FROM PHARMACY. -ANTHONY ADAMS, TARAND
--- NOTE | 2023-08-25 10:06 | P.DS_ITS ---
General Admission date:: 08/25/23 Discharge date: 08/25/23 HPI HPI HPI: This is a 67-year-old female who presents to [facility] emergency department with concerns of shortness of air over several days. Her past medical history is significant for MAYELIN with home BiPAP and identified congestive heart failure with preserved ejection fraction. She reports previous care with [facility] cardiology. She describes recent increase in stressors with her 's rectal cancer illness, frequent travel to [place] and diet changes. She describes shortness of air over several days not im proving with home diuretic dosing. She denies associated fever, chills, cough, hemoptysis or sputum production. She denies retrosternal chest pain, acute dyspnea at rest or confusion. She endorses shortness of air with activity. In the ED her presenting blood pressure was elevated her chest imaging was consistent with congestive heart failure and her BNP was 1340. Hospital Course Hospital Course Hospital Course: This is a 67-year-old female with previous cardiology care at [facility]. She presents to the ED and objective evaluation identifies concerns for heart failure exacerbation. Initiated on diuresis. BiPAP overnight. On room air by morning. Diuresed 1 L by morning. Patient adamant about discharging today as she is supposed to fly to [place] where her is getting treatment for cancer. 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 Extensive discussion about risks of leaving at this time given her need for continued diuresis, continued hypertension, and risk for lying poses for her with altitude changes. Patient adamant she wants to go. Discharged AMA. Problems addressed as follows: Acute on chronic heart failure with preserved ejection fraction Volume overload Patient admitted for telemetry. Cardiology was consulted. Echocardiogram ordered. Diuresed with Lasix x 1, -1 L since admission. BiPAP overnight to help with her pulmonary edema. Imaging of her chest personally reviewed showing bilateral small pleural effusions. Findings consistent with CHF exacerbation. BNP elevated at 1300. On room air by morning. Discussed risks and benefits of leaving the hospital at this time. Is my opinion that she requires further diuresis necessitating continued inpatient management. Patient adamant that she needs to fly to [place] today to see her . States she will follow-up with her providers closely there. Concerned about potential fluid shifts and exacerbation with change in altitude while flying. Expressed this concern to patient. She elected to leave under her own recognizance. Recommend increasing her Lasix 80 mill grams twice daily for the next 4 days to help with her volume, transition back to her normal regimen thereafter. Encouraged her to get labs with her providers in [place] this coming week. Strong concern about her discharging at this. Resume home regimen for heart failure and hypertension. Diabetes Poorly controlled with A1c of 8.9. Unable to make adjustments as patient was not hospitalized long enough and left AGAINST MEDICAL ADVICE. Resume regimen, recommend she discuss changes to her regimen with providers in the outpatient setting Exam Data for Last 24 hours Vital signs and Labs for Last 24 Hours: Temp Pulse Resp BP Pulse Ox O2 Del Method O2 Flow Rate 98.6 F 64 18 158/63 H 96 Room Air 3 08/25/23 08:00 08/25/23 08:00 08/25/23 08:00 08/25/23 08:00 08/25/23 08:00 08/25/23 09:00 08/25/23 00:34 FiO2 21 08/25/23 06:45 Laboratory Results - last 24 hr 08/24/23 21:31: WBC 12.2 H, RBC 4.46, Hgb 12.6, Hct 39.8, MCV 89.3, MCH 28.2, MCHC 31.6 L, RDW 14.4, Plt Count 253, MPV 8.5, Neut % (Auto) 77.5, Lymph % (Auto) 14.3, Gove % (Auto) 4.8, Eos % (Auto) 2.6, Baso % (Auto) 0.8, Neut # (Auto) 9.4 H, Lymph # (Auto) 1.7, Gove # (Auto) 0.6, Eos # (Auto) 0.3, Baso # (Auto) 0.1, Sodium 136, Potassium 4.1, Chloride 103, Carbon Dioxide 27, Anion Gap 10.1, BUN 13, Creatinine 0.90, Estimated Creat Clear 38, Estimated GFR 62, Est GFR ( Amer) 75, Glucose 247 H, Calcium 8.8, Total Bilirubin 1.2, AST 46 H, ALT 39, Alkaline Phosphatase 104, Troponin I < 0.01, NT-Pro-B Natriuret Pep 1340 H, Total Protein 6.3, Albumin 3.7, Globulin 2.6, Albumin/Globulin Ratio 1.4, TSH 1.14, Thyroxine (T4) 9.1 08/24/23 22:25: SARS-CoV-2 (PCR) Not detected, Influenza A Untype (PCR) Not detected, Influenza Type B (PCR) Not detected 08/25/23 00:30: Troponin I < 0.01 08/25/23 03:30: Troponin I < 0.01 08/25/23 05:54: POC Glucose 268 H 08/25/23 06:55: WBC 10.7, RBC 4.42, Hgb 12.7, Hct 40.0, MCV 90.6, MCH 28.7, MCHC 31.7 L, RDW 14.3, Plt Count 255, MPV 8.5, Neut % (Auto) 64.7, Lymph % (Auto) 24.9, Gove % (Auto) 7.6, Eos % (Auto) 1.8, Baso % (Auto) 0.8, Neut # (Auto) 6.9, Lymph # (Auto) 2.7, Gove # (Auto) 0.8, Eos # (Auto) 0.2, Baso # (Auto) 0.1, Sodium 138, Potassium 3.1 L D, Chloride 98, Carbon Dioxide 30, Anion Gap 13.1, BUN 10, Creatinine 0.90, Estimated Creat Clear 36, Estimated GFR 62, Est GFR ( Amer) 75, Glucose 262 H, Hemoglobin A1c 8.9 H, Calcium 8.5, Magnesium 1.7 I & O for Last 24 hours: Intake & Output 08/22/23 08/23/23 08/24/23 08/25/23 23:59 23:59 23:59 23:59 Intake Total 2.250 / 2.250 360 / 360 Output Total 1000 / 1000 Balance 2.250 / 2.250 -640 / -640 Weight 113.398 kg 115.53 kg Constitutional Constitutional: no acute distress, morbidly obese and chronically ill appearing *Routine HEENT Exam Head: Present normocephalic Eye: Present EOMI and PERRL ENT: Present mucous membranes moist *Routine Neck Exam Neck: Present supple; Absent lymphadenopathy *Routine Respiratory Exam Respiratory: Present crackles and normal respiratory effort; Absent rhonchi or wheezes Comments: Diffuse crackles in posterior lung linton *Routine Cardiovascular Exam Cardiovascular: Present RRR *Routine Abdominal Exam Abdominal: Present soft and normoactive bowel sounds; Absent tenderness *Routine Rectal Exam Patient deferred: visual exam *Routine Exam Patient deferred: external exam *Routine Extremities Exam Extremities: Present edema (3+ edema right lower extremity at the knee, 2+ edema in left lower extremity); Absent cyanosis or clubbing *Routine Skin Exam Skin: Present intact and warm; Absent rash *Routine Neurological Exam Neurological: Present alert, oriented X3 and moving all extremities; Absent altered mental status Results Data Completed and Pending Labs on day of discharge: Labs from last 24 hours 08/25/23 08/25/23 08/25/23 06:55 05:54 03:30 WBC 10.7 RBC 4.42 Hgb 12.7 Hct 40.0 MCV 90.6 MCH 28.7 MCHC 31.7 L RDW 14.3 Plt Count 255 MPV 8.5 Neut % (Auto) 64.7 Lymph % (Auto) 24.9 Gove % (Auto) 7.6 Eos % (Auto) 1.8 Baso % (Auto) 0.8 Neut # (Auto) 6.9 Lymph # (Auto) 2.7 Gove # (Auto) 0.8 Eos # (Auto) 0.2 Baso # (Auto) 0.1 Sodium 138 Potassium 3.1 L D Chloride 98 Carbon Dioxide 30 Anion Gap 13.1 BUN 10 Creatinine 0.90 Estimated Creat Clear 36 Estimated GFR 62 Est GFR ( Amer) 75 Glucose 262 H POC Glucose 268 H Hemoglobin A1c 8.9 H Calcium 8.5 Magnesium 1.7 Total Bilirubin AST ALT Alkaline Phosphatase Troponin I < 0.01 NT-Pro-B Natriuret Pep Total Protein Albumin Globulin Albumin/Globulin Ratio TSH Thyroxine (T4) SARS-CoV-2 (PCR) Influenza A Untype (PCR) Influenza Type B (PCR) 08/25/23 08/24/23 08/24/23 00:30 22:25 21:31 WBC 12.2 H RBC 4.46 Hgb 12.6 Hct 39.8 MCV 89.3 MCH 28.2 MCHC 31.6 L RDW 14.4 Plt Count 253 MPV 8.5 Neut % (Auto) 77.5 Lymph % (Auto) 14.3 Gove % (Auto) 4.8 Eos % (Auto) 2.6 Baso % (Auto) 0.8 Neut # (Auto) 9.4 H Lymph # (Auto) 1.7 Gove # (Auto) 0.6 Eos # (Auto) 0.3 Baso # (Auto) 0.1 Sodium 136 Potassium 4.1 Chloride 103 Carbon Dioxide 27 Anion Gap 10.1 BUN 13 Creatinine 0.90 Estimated Creat Clear 38 Estimated GFR 62 Est GFR ( Amer) 75 Glucose 247 H POC Glucose Hemoglobin A1c Calcium 8.8 Magnesium Total Bilirubin 1.2 AST 46 H ALT 39 Alkaline Phosphatase 104 Troponin I < 0.01 < 0.01 NT-Pro-B Natriuret Pep 1340 H Total Protein 6.3 Albumin 3.7 Globulin 2.6 Albumin/Globulin Ratio 1.4 TSH 1.14 Thyroxine (T4) 9.1 SARS-CoV-2 (PCR) Not detected Influenza A Untype (PCR) Not detected Influenza Type B (PCR) Not detected DS: Diagnosis Discharge Diagnosis (1) Acute on chronic heart failure with preserved ejection fraction (HFpEF): Status: Acute Code(s): I50.33 - Acute on chronic diastolic (congestive) heart failure (2) MAYELIN (obstructive sleep apnea): Status: Acute Code(s): G47.33 - Obstructive sleep apnea (adult) (pediatric) (3) Obesity hypoventilation syndrome: Status: Acute Code(s): E66.2 - Morbid (severe) obesity with alveolar hypoventilation (4) Diabetes mellitus: Status: Acute Code(s): E11.9 - Type 2 diabetes mellitus without complications Meds Home Medications and Allergies Home Medications Medication Instructions Recorded Confirmed Type aspirin 81 mg tablet,delayed 81 mg PO DAILY Supplement 04/16/17 08/25/23 History release (Aspir-) citalopram 20 mg tablet 30 mg PO DAILY 04/08/20 08/25/23 History rosuvastatin 5 mg tablet 5 mg PO DAILY 04/08/20 08/25/23 History insulin lispro 100 unit/mL 0 sliding scale dose SQ TID 06/03/20 08/25/23 History subcutaneous cartridge (Humalog U-100 Insulin) magnesium 200 mg tablet 400 mg PO DAILY 12/30/20 08/25/23 History nystatin 100,000 unit/gram topical 1 applic topical TID 12/30/20 08/25/23 History powder carvedilol 12.5 mg tablet 12.5 mg PO BID 05/25/24 05/25/24 History esomeprazole magnesium 40 mg 40 mg PO BID 08/25/23 08/25/23 History capsule,delayed release (Nexium) furosemide 40 mg tablet 40 mg PO DAILY 08/25/23 08/25/23 History insulin degludec 100 unit/mL (3 65 unit SQ HS 08/25/23 08/25/23 History mL) subcutaneous pen (Tresiba FlexTouch U-100 insulin) losartan 50 mg tablet 50 mg PO DAILY 08/25/23 08/25/23 History New Prescriptions to Start Prescriptions: Allergies Allergy/AdvReac Type Severity Reaction Status Date / Time betamethasone [BETAMETHASONE] Allergy Severe S-SWELLS-OR Verified 07/19/21 15:41 AL/THROAT morphine [MORPHINE] Allergy Severe S-DIFF. Verified 07/19/21 15:41 BREATHING SULFONE Allergy Intermediate NA-NAUSEA Uncoded 04/16/17 11:12 Discharge Plan Disposition Patient Disposition: Left Against Medical Advice Providers Admit Provider: Jonathan Quesada Attending Provider: Jonathan Quesada
== END 2023-08-25 10:00 | disposition left against medical advice (07) ==
LOC: ER 08-25 00:01 → 2ND 08-25 00:16
PROVIDERS: Family Medicine; Admitting Provider Internal Medicine Adolescent Medicine; Emergency Provider Emergency Medicine; Visit Provider Internal Medicine Adolescent Medicine
DX: I11.0 Hypertensive heart disease with heart failure (principal); I16.0 Hypertensive urgency; E78.5 Hyperlipidemia, unspecified; E66.9 Obesity, unspecified; Z68.43 Body mass index [BMI] 50.0-59.9, adult; Z79.4 Long term (current) use of insulin; Z86.73 Personal history of transient ischemic attack (TIA), and cerebral infarction without residual deficits; I50.33 Acute on chronic diastolic (congestive) heart failure; G47.33 Obstructive sleep apnea (adult) (pediatric); E11.65 Type 2 diabetes mellitus with hyperglycemia
CPT/HCPCS: 36415; 71046; 80048; 80053; 82962; 83036; 83735; 83880; 84436; 84443; 84484; 85025; 87636; 93005; 94660; 99291; G0378

== ENCOUNTER 2024-04-27 16:08 | Emergency (ER) | payer MEDICARE, SELFPAY ==
[2024-04-27] VITALS (9 sets, daily range): BP systolic 148–184; BP diastolic 53–123; PULSE 55–88; RESP 11–20; TEMP 37.2; O2SAT 79–99; BMI 48.8
--- NOTE | 2024-04-27 16:36 | ECG_ITS ---
APPROVED REPORT Exam: Resting ECG HR:65 bpm ECG Measurements Heart Rate 65 AXES DC 166 P 102 QRSd 85 QRS 50 QT 403 T 66 QTc 415 Conclusion SINUS RHYTHM NONSPECIFIC T-WAVE ABNORMALITY BORDERLINE ECG Electronically signed by : MACKENZIE VELAZQUEZ, 04/28/2024 22:06:03
--- NOTE | 2024-04-27 16:50 | XR_ITS ---
PROCEDURE INFORMATION: Exam: XR Chest Exam date and time: 04/27/2024 4:55 PM Age: 68 years old Clinical indication: Shortness of breath; Additional info: Short of breath TECHNIQUE: Imaging protocol: Radiologic exam of the chest. Views: 1 view. COMPARISON: CR XR CHEST 2V 08/24/2023 9:26 PM FINDINGS: Tubes, catheters and devices: Probable loop recorder projecting over the cardiac silhouette. Lungs: Question mild central vascular congestion. No gross pulmonary infiltrates or edema pattern. Bandlike atelectasis in the peripheral left base again noted. Pleural spaces: No gross pleural effusions. No pneumothorax. Heart/Mediastinum: Heart size upper limits of normal. Bones/joints: No acute osseous abnormalities are identified. IMPRESSION: 1. No acute thoracic process. 2. Question mild cardiomegaly and central vascular congestion.
[2024-04-27 16:59] LABS: Basophils # 0.1 K/mm3 (0-0.2); Basophils % 0.6 % (0.1-2.0); Eosinophils # 0.2 K/mm3 (0.0-0.4); Eosinophils % 2.9 % (0.1-12.0); Hematocrit 37.9 % (37.0-47.0); Hemoglobin 12.4 g/dL (12.2-16.2); Lymphocytes # 1.6 K/mm3 (0.7-4.5); Mean Corpuscular HGB Conc 32.7 g/dL (31.8-35.4); Mean Corpuscular Hemoglobin 28.3 pg (27.0-31.2); Mean Corpuscular Volume 86.5 fl (81-99); Mean Platelet Volume 9.7 fl (7.4-10.4); Monocytes # 1.3 K/mm3 (0.1-1.0); Monocytes % 16.3 % (1.7-9.3); Neutrophils # 4.7 K/mm3 (1.8-7.8); Neutrophils % 59.1 % (37.0-80.0); Platelet Count 189 K/mm3 (142-424); Red Blood Count 4.38 M/mm3 (4.20-5.40); Red Cell Distribution Width 13.5 % (11.5-17.5)
--- NOTE | 2024-04-27 17:01 | ED_ITS ---
Discharge Plan Disposition Patient Disposition: Home, Self-Care Condition: Good Prescriptions Prescriptions: New cefdinir 300 mg capsule 300 mg PO BID 10 Days Qty: 20 0RF No Action aspirin [Aspir-81] 81 mg tablet,delayed release (DR/EC) 81 mg PO DAILY Humalog U-100 Insulin 100 unit/mL cartridge 0 sliding scale dose SQ TID rosuvastatin 5 mg tablet 5 mg PO DAILY Patient Comments: TAKE 1 TABLET BY MOUTH ONCE DAILY citalopram 20 mg tablet 30 mg PO DAILY Patient Comments: TAKE 1 TABLET BY MOUTH ONCE DAILY magnesium 200 mg tablet 400 mg PO DAILY nystatin 100,000 unit/gram powder 1 applic TOPICAL TID Patient Comments: APPLY POWDER TOPICALLY TO AFFECTED AREA (RASH) THREE TIMES DAILY esomeprazole magnesium [Nexium] 40 mg Capsule,Delayed Release(Dr/Ec) 40 mg PO BID insulin degludec [Tresiba FlexTouch U-100] 100 unit/mL (3 mL) Insulin Pen 65 unit SQ HS losartan 50 mg tablet 50 mg PO DAILY Patient Comments: TAKE 1 TABLET BY MOUTH ONCE DAILY furosemide 40 mg tablet 40 mg PO DAILY Patient Comments: TAKE 1 TABLET BY MOUTH ONCE DAILY carvedilol 12.5 mg tablet 12.5 mg PO BID Patient Comments: TAKE 1 TABLET BY MOUTH TWICE DAILY Referrals Follow up/Referrals: Sixto Patel MD [Primary Care Provider] - See instructions Activity Restrictions/Add. Instructions Additional Instructions/Restrictions: Drink plenty of fluids, rest. Take antibiotics for ear infection. Take Tylenol and ibuprofen for aches or fever if needed. Clinical Impressions Clinical Impression: Otitis media, COVID-19 Instructions Patient Instructions: COVID-19 Print Language Print Language: Slovenian Discharge ED Provider: Clay Galicia General Adult HPI <Zully Stoll (ED), PULVERIZING AND SIFTING OPERATOR - Last Filed: 04/27/24 18:39> General Chief complaint: Shortness of Breath/Dyspnea Stated complaint: covid+ soa Time Seen by Provider: 04/27/24 16:39 Mode of Arrival: Wheelchair Source of Information: Patient Limitations: No Limitations Description of Symptoms (Recalled from ER Triage Doc. by RN): PT REPORTS AT HOME + COVID TEST, SYMPTOMS STARTED SUNDAY AFTERNOON WITH HEADACHE, WATERING EYES, EARACHE, CONGESTION AND SHORTNESS OF BREATH STARTED YESTERDAY. PT REPORTS HX OF CHF Related Data Home Medications ?Medication ?Instructions ?Recorded ?Confirmed aspirin 81 mg tablet,delayed 81 mg PO DAILY Supplement 04/16/17 08/25/23 release (Aspir-) citalopram 20 mg tablet 30 mg PO DAILY 04/08/20 08/25/23 rosuvastatin 5 mg tablet 5 mg PO DAILY 04/08/20 08/25/23 insulin lispro 100 unit/mL 0 sliding scale dose SQ TID 06/03/20 08/25/23 subcutaneous cartridge (Humalog U-100 Insulin) magnesium 200 mg tablet 400 mg PO DAILY 12/30/20 08/25/23 nystatin 100,000 unit/gram topical 1 applic topical TID 12/30/20 08/25/23 powder carvedilol 12.5 mg tablet 12.5 mg PO BID 08/25/23 08/25/23 esomeprazole magnesium 40 mg 40 mg PO BID 08/25/23 08/25/23 capsule,delayed release (Nexium) furosemide 40 mg tablet 40 mg PO DAILY 08/25/23 08/25/23 insulin degludec 100 unit/mL (3 65 unit SQ HS 08/25/23 08/25/23 mL) subcutaneous pen (Tresiba FlexTouch U-100 insulin) losartan 50 mg tablet 50 mg PO DAILY 08/25/23 08/25/23 Previous Rx's ?Medication ?Instructions ?Recorded cefdinir 300 mg capsule 300 mg PO BID 10 days #20 caps 04/27/24 Allergies Allergy/AdvReac Type Severity Reaction Status Date / Time betamethasone (BETAMETHASONE) Allergy Severe S-SWELLS-OR Verified 07/19/21 15:41 AL/THROAT morphine (MORPHINE) Allergy Severe S-DIFF. Verified 07/19/21 15:41 BREATHING SULFONE Allergy Intermediate NA-NAUSEA Uncoded 04/16/17 11:12 [facility] <Zully Stoll (ED), PULVERIZING AND SIFTING OPERATOR - Last Filed: 04/27/24 18:39> [facility] Disclaimer: The information contained in this section may have been updated after the patient was seen, as this information can be updated by other users. Medical History (Updated 04/27/24 @ 18:41 by Zully Stoll (ED), PULVERIZING AND SIFTING OPERATOR) BMI 50.0-59.9, adult Stroke Congestive heart failure Hypertension Sleep apnea Diabetes mellitus Surgical History (Updated 08/25/23 @ 01:04 by Ly Dotson RN) History of right hemicolectomy History of laparoscopic cholecystectomy History of hernia repair History of hysterectomy Family History (Updated 08/25/23 @ 01:04 by Ly Dotson RN) Other Colon cancer Heart disease Pancreatic cancer Social History (Updated 08/25/23 @ 01:21 by Mook Petersen MD) Smoking Status: Never smoker alcohol intake: never substance use type: denies use current occupational status: disabled Travel in the last 8 weeks: Inside the [place] household members: spouse housing: house marital status: number of children: 3 eliseo/voodoo: Hindu Have you lived/traveled outside US in past 30 days?: No Contact w/someone who lives/traveled outside US past 30 days?: No Exposure to someone with infectious disease in past 14 days?: Yes Do you have a fever (greater than 100.4 F or 38 C)?: No Have you tested positive for COVID-19: Yes Exposed to someone with COVID-19 in past 14 days?: Yes Do you have a sore throat?: No Do you have a cough?: No Do you have any weakness?: No Do you have any diarrhea?: No Are you experiencing any unusual bleeding?: No Do you have any muscle aches/pain?: No Do you have any abdominal pain?: No Are you experiencing loss of taste or smell?: No Other Medical History Have you received the Flu Vaccine for this season: No Have you received the Pneumonia Vaccine: No <Zully Stoll (ED), PULVERIZING AND SIFTING OPERATOR - Last Filed: 04/27/24 18:39> ROS Obtained: Yes Systems reviewed as appropriate & no additional complaints except as documented Constitutional Constitutional: Reports as per HPI Physical Exam <Zully Stoll (ED), PULVERIZING AND SIFTING OPERATOR - Last Filed: 04/27/24 18:39> General General appearance: alert and anxious Head Head exam: atraumatic and normocephalic Eye Eye exam: Present normal appearance, PERRL and EOMI ENT ENT exam: Present normal oropharynx, mucous membranes moist and other (Right TM is infected, red and inflamed) Neck Neck exam: Present normal inspection, full ROM and trachea midline Respiratory Respiratory exam: Present normal lung sounds bilaterally Cardiovascular Cardiovascular exam: Present regular rate, normal rhythm, normal heart sounds, +S1 and +S2 Abdominal Exam Abdominal exam: Present soft and normal bowel sounds Extremities Exam Extremities exam: Present full ROM, normal capillary refill and edema (Mild in bilateral lower extremities) Neurological Exam Neurological exam: Present alert and oriented X3 Skin Skin exam: Present warm, dry and intact Medical Decision Making <Zully [place]iel (ED), PULVERIZING AND SIFTING OPERATOR - Last Filed: 04/27/24 18:39> Medical Records Screening: Per USPSTF and CDC recommendations, given the prevalence of disease in our region, it is our hospital?s policy to screen for HIV and viral Hepatitis for all patients aged 18 and over and those with ongoing risk factors. Tan Inquiry Pt receiving controlled substance: No Tan was queried for this patient: No Vital Signs: 04/27/24 16:10 04/27/24 16:30 04/27/24 16:45 Temperature 99.0 F Temperature Source Oral Pulse Rate 75 70 Pulse Rate [Apical] 70 Respiratory Rate 18 19 Blood Pressure 184/64 H Blood Pressure [Right Arm] 184/64 H Blood Pressure Mean [Right Arm] 104 Blood Pressure Source Blood Pressure Source [Right Arm] Automatic Cuff Blood Pressure Position Blood Pressure Position [Right Arm] Sitting 02 Sat by Pulse Oximetry 97 94 L 97 Oxygen Delivery Method Room Air 04/27/24 17:00 04/27/24 17:30 04/27/24 18:00 Temperature Temperature Source Pulse Rate 62 64 55 L Pulse Rate [Apical] Respiratory Rate 19 20 14 Blood Pressure 156/53 H 156/57 H 148/123 H Blood Pressure [Right Arm] Blood Pressure Mean [Right Arm] Blood Pressure Source Blood Pressure Source [Right Arm] Blood Pressure Position Blood Pressure Position [Right Arm] 02 Sat by Pulse Oximetry 92 L 79 L 99 Oxygen Delivery Method 04/27/24 18:15 04/27/24 18:30 04/27/24 18:54 Temperature 98.9 F Temperature Source Oral Pulse Rate 88 66 60 Pulse Rate [Apical] Respiratory Rate 20 11 L 20 Blood Pressure 150/62 H 150/62 H Blood Pressure [Right Arm] Blood Pressure Mean [Right Arm] Blood Pressure Source Automatic Cuff Blood Pressure Source [Right Arm] Blood Pressure Position Sitting Blood Pressure Position [Right Arm] 02 Sat by Pulse Oximetry 96 95 Oxygen Delivery Method Room Air Room Air Lab Data Lab Results 04/27/24 16:50: WBC 8.0, RBC 4.38, Hgb 12.4, Hct 37.9, MCV 86.5, MCH 28.3, MCHC 32.7, RDW 13.5, Plt Count 189, MPV 9.7, Neut % (Auto) 59.1, Lymph % (Auto) 20.0, [place] % (Auto) 16.3 H, Eos % (Auto) 2.9, Baso % (Auto) 0.6, Neut # (Auto) 4.7, Lymph # (Auto) 1.6, [place] # (Auto) 1.3 H, Eos # (Auto) 0.2, Baso # (Auto) 0.1, Sodium 136, Potassium 3.8, Chloride 101, Carbon Dioxide 28, Anion Gap 10.8, BUN 14, Creatinine 0.70, Estimated Creat Clear 38, Estimated GFR 83, Est GFR ( Amer) 100, Glucose 231 H, Calcium 8.1 L, Total Bilirubin 1.5 H, AST 55 H, ALT 53, Alkaline Phosphatase 85, Troponin I < 0.01, NT-Pro-B Natriuret Pep 1570 H, Total Protein 5.9 L, Albumin 3.5, Globulin 2.4, Albumin/Globulin Ratio 1.5, HCV Ab REYMUNDO w/Rflx PCR Qn Negative, HIV Ag/Ab Combo Qual Negative 04/27/24 16:50 04/27/24 16:50 Orders (Tests/Meds): ED MEDICATIONS Discontinued Medications Generic Name Dose Route Start Last Admin Trade Name Freq PRN Reason Stop Dose Admin Acetaminophen 1,000 mg 04/27/24 16:52 04/27/24 17:08 Acetaminophen 1,000mg/100ml Vial IV 04/27/24 16:53 1,000 mg ONCE ONE Administration Aspirin 324 mg 04/27/24 16:49 04/27/24 17:07 Aspirin 81mg Chewable Tablet PO 04/27/24 16:50 324 mg ONCE ONE Administration Ondansetron HCl 4 mg 04/27/24 16:52 04/27/24 17:07 Ondansetron 4mg/2ml Vial IV 04/27/24 16:53 4 mg ONCE ONE Administration ORDERS Category Date Time Status XR chest portable Stat Exams 04/27/24 16:50 Completed Complete Blood Count Auto Diff Stat Lab 04/27/24 16:50 Completed Comprehensive Metabolic Panel Stat Lab 04/27/24 16:50 Completed HIV Combo Stat Lab 04/27/24 16:50 Completed Hepatitis C Ab Qual. W/ RFX Stat Lab 04/27/24 16:50 Completed NT Pro Brain Natriuretic Pep. Stat Lab 04/27/24 16:50 Completed Troponin I Stat Lab 04/27/24 16:50 Completed Medical Decision Narrative: Insert review patient is a 68-year-old female presenting to the emergency department for evaluation of cough, congestion, shortness of breath with cough. Patient is hemodynamically stable and nontoxic-appearing upon arrival, afebrile. Differential diagnosis includes CHF, COVID or flu, congestion, viral illness among others. Workup will be conducted with hematologic labs, specific imaging, provocative tests. Initial inventions include Tylenol. Initial workup reviewed by me hematologic labs are remarkable for mildly elevated BNP 1570 however her last 1 was 1340. Discussed this with Dr Galicia and we both feel that since she has COVID and she is not requiring oxygen that she can go home safely. Other labs are unremarkable. Imaging informally interpreted by me and remarkable for some vascular congestion. Formal imaging read remarkable for CT formal radiology read. Upon repeat evaluation patient is improved, appears better. We discussed home treatment and follow-up. <Clay Galicia MD - Last Filed: 05/05/24 00:41> Vital Signs: 04/27/24 16:10 04/27/24 16:30 04/27/24 16:45 Temperature 99.0 F Temperature Source Oral Pulse Rate 75 70 Pulse Rate [Apical] 70 Respiratory Rate 18 19 Blood Pressure 184/64 H Blood Pressure [Right Arm] 184/64 H Blood Pressure Mean [Right Arm] 104 Blood Pressure Source Blood Pressure Source [Right Arm] Automatic Cuff Blood Pressure Position Blood Pressure Position [Right Arm] Sitting 02 Sat by Pulse Oximetry 97 94 L 97 Oxygen Delivery Method Room Air 04/27/24 17:00 04/27/24 17:30 04/27/24 18:00 Temperature Temperature Source Pulse Rate 62 64 55 L Pulse Rate [Apical] Respiratory Rate 19 20 14 Blood Pressure 156/53 H 156/57 H 148/123 H Blood Pressure [Right Arm] Blood Pressure Mean [Right Arm] Blood Pressure Source Blood Pressure Source [Right Arm] Blood Pressure Position Blood Pressure Position [Right Arm] 02 Sat by Pulse Oximetry 92 L 79 L 99 Oxygen Delivery Method 04/27/24 18:15 04/27/24 18:30 04/27/24 18:54 Temperature 98.9 F Temperature Source Oral Pulse Rate 88 66 60 Pulse Rate [Apical] Respiratory Rate 20 11 L 20 Blood Pressure 150/62 H 150/62 H Blood Pressure [Right Arm] Blood Pressure Mean [Right Arm] Blood Pressure Source Automatic Cuff Blood Pressure Source [Right Arm] Blood Pressure Position Sitting Blood Pressure Position [Right Arm] 02 Sat by Pulse Oximetry 96 95 Oxygen Delivery Method Room Air Room Air Lab Data Lab Results 04/27/24 16:50: WBC 8.0, RBC 4.38, Hgb 12.4, Hct 37.9, MCV 86.5, MCH 28.3, MCHC 32.7, RDW 13.5, Plt Count 189, MPV 9.7, Neut % (Auto) 59.1, Lymph % (Auto) 20.0, [place] % (Auto) 16.3 H, Eos % (Auto) 2.9, Baso % (Auto) 0.6, Neut # (Auto) 4.7, Lymph # (Auto) 1.6, [place] # (Auto) 1.3 H, Eos # (Auto) 0.2, Baso # (Auto) 0.1, Sodium 136, Potassium 3.8, Chloride 101, Carbon Dioxide 28, Anion Gap 10.8, BUN 14, Creatinine 0.70, Estimated Creat Clear 38, Estimated GFR 83, Est GFR ( Amer) 100, Glucose 231 H, Calcium 8.1 L, Total Bilirubin 1.5 H, AST 55 H, ALT 53, Alkaline Phosphatase 85, Troponin I < 0.01, NT-Pro-B Natriuret Pep 1570 H, Total Protein 5.9 L, Albumin 3.5, Globulin 2.4, Albumin/Globulin Ratio 1.5, HCV Ab REYMUNDO w/Rflx PCR Qn Negative, HIV Ag/Ab Combo Qual Negative Orders (Tests/Meds): ED MEDICATIONS Discontinued Medications Generic Name Dose Route Start Last Admin Trade Name Freq PRN Reason Stop Dose Admin Acetaminophen 1,000 mg 04/27/24 16:52 04/27/24 17:08 Acetaminophen 1,000mg/100ml Vial IV 04/27/24 16:53 1,000 mg ONCE ONE Administration Aspirin 324 mg 04/27/24 16:49 04/27/24 17:07 Aspirin 81mg Chewable Tablet PO 04/27/24 16:50 324 mg ONCE ONE Administration Ondansetron HCl 4 mg 04/27/24 16:52 04/27/24 17:07 Ondansetron 4mg/2ml Vial IV 04/27/24 16:53 4 mg ONCE ONE Administration ORDERS Category Date Time Status XR chest portable Stat Exams 04/27/24 16:50 Completed Complete Blood Count Auto Diff Stat Lab 04/27/24 16:50 Completed Comprehensive Metabolic Panel Stat Lab 04/27/24 16:50 Completed HIV Combo Stat Lab 04/27/24 16:50 Completed Hepatitis C Ab Qual. W/ RFX Stat Lab 04/27/24 16:50 Completed NT Pro Brain Natriuretic Pep. Stat Lab 04/27/24 16:50 Completed Troponin I Stat Lab 04/27/24 16:50 Completed Medical Decision Narrative: Insert review patient is a 68-year-old female presenting to the emergency department for evaluation of cough, congestion, shortness of breath with cough. Patient is hemodynamically stable and nontoxic-appearing upon arrival, afebrile. Differential diagnosis includes CHF, COVID or flu, congestion, viral illness among others. Workup will be conducted with hematologic labs, specific imaging, provocative tests. Initial inventions include Tylenol. Initial workup reviewed by me hematologic labs are remarkable for mildly elevated BNP 1570 however her last 1 was 1340. Discussed this with Dr Galicia and we both feel that since she has COVID and she is not requiring oxygen that she can go home safely. Other labs are unremarkable. Imaging informally interpreted by me and remarkable for some vascular congestion. Formal imaging read remarkable for CT formal radiology read. Upon repeat evaluation patient is improved, appears better. We discussed home treatment and follow-up. I was consulted by the LACHO, and we discussed the complexity of the problems being addressed.I approved the treatment and management plan for this patient?s care in the Emergency Department, thus performing a substantive portion of the medical decision making.Signed, Clay Galicia MD MBA Critical Care <Zully Stoll (ED), PULVERIZING AND SIFTING OPERATOR - Last Filed: 04/27/24 18:39> Critical Care Time Critical Care Time: No
[2024-04-27 17:07] LABS: Albumin Level 3.5 g/dl (3.5-5.0); Chloride 101 mmol/L (98-107); Potassium 3.8 mmoL/L (3.5-5.1); Sodium 136 mmol/L (136-145)
[2024-04-27] MEDS: ONDANSETRON 4MG/2ML VIAL 4 MG IV (17:07)
[2024-04-27] MEDS: ASPIRIN 81MG CHEWABLE TABLET 324 MG PO (17:07)
[2024-04-27] MEDS: ACETAMINOPHEN 1,000MG/100ML VIAL 1000 MG IV (17:08)
[2024-04-27 17:09] LABS: Blood Urea Nitrogen 14 mg/dl (7-17)
[2024-04-27 17:10] LABS: Alanine Aminotransferase 53 U/L (12-78); Albumin/Globulin Ratio 1.5 (1.1-1.8); Alkaline Phosphatase 85 U/L (38-126); Anion Gap 10.8 mEq/L (5-15); Aspartate Amino Transferase 55 U/L (14-36); Bilirubin,Total 1.5 mg/dl (0.2-1.3); Calcium 8.1 mg/dl (8.4-10.2); Carbon Dioxide 28 mmol/L (22.0-30.0); Creatinine Clearance Estimated 38 mL/min (50-200); Estimated Glomerular Filt Rate 83 ml/min (>60); GFR (African American) 100 ML/MIN (>60); Globulin 2.4 g/dL (1.3-3.2); Glucose 231 mg/dl (74-100); Total Protein,Serum 5.9 g/dl (6.3-8.2)
[2024-04-27 17:19] LABS: NT Pro Brain Natriuretic Pep. 1570 pg/mL (0-125)
--- NOTE | 2024-04-27 17:35 | PC.NURSE ---
Patient with eyes closed and respirations silent, even, and non-labored. Oxygen saturation noted to be 80. Patient opens eyes when name called and oxygen saturation immediately greater than 90. Patient states, I just need my BiPAP. Patient states she is drowsy. Placed on 3LPM per nasal cannula. Patient voices no questions or concerns at this time.
[2024-04-27 18:08] LABS: Troponin I < 0.01 ng/ml (0.00-0.034)
[2024-04-27 18:58] LABS: HIV Combo NEGATIVE (Negative)
[2024-04-27 19:07] LABS: Hepatitis C Ab Qual. W/ RFX NEGATIVE (Negative)
== END 2024-04-27 18:55 | disposition home or self-care (01) ==
PROVIDERS: Nurse Practitioner; Emergency Provider Emergency Medicine; PCP Internal Medicine
DX: U07.1 COVID-19 (principal); H66.91 Otitis media, unspecified, right ear; R06.02 Shortness of breath; R06.00 Dyspnea, unspecified; R51.9 Headache, unspecified; R09.81 Nasal congestion; H92.03 Otalgia, bilateral; H04.203 Unspecified epiphora, bilateral; R05.9 Cough, unspecified; Z86.79 Personal history of other diseases of the circulatory system
CPT/HCPCS: 71045; 80053; 83880; 84484; 85025; 86803; 87389; 93005; 96374; 96375; 99284; J0131; J2405

== ENCOUNTER 2024-06-26 15:03 | Outpatient (CLI) | payer MEDICARE, SELFPAY ==
[2024-06-26 15:30] LABS: Microalbumin/Creatinine Ratio 11.5
[2024-06-26 15:39] LABS: Creatinine,Urine Random 120 mg/dL (Not Estab.); Hemoglobin A1C 10.1 % (4.0-6.0)
[2024-06-26 16:23] LABS: Chol/HDL Ratio 2.4 (1-3.5); Cholesterol 129 mg/dl (140-200); HDL Cholesterol 53 mg/dl (40-60); Triglycerides 108 mg/dl (30-150); VLDL Cholesterol 22 mg/dL (0-40)
[2024-06-26 16:34] LABS: Direct LDL Cholesterol 53.28 mg/dL (100-129)
== END 2024-06-26 23:59 | disposition home or self-care (01) ==
LOC: LAB.DROPOF 15:03
PROVIDERS: PCP Internal Medicine; Visit Provider Internal Medicine
DX: E11.9 Type 2 diabetes mellitus without complications (principal); Z13.220 Encounter for screening for lipoid disorders
CPT/HCPCS: 80061; 82043; 82570; 83036

== ENCOUNTER 2024-07-07 14:53 | Outpatient (CLI) | payer MEDICARE, SELFPAY ==
--- NOTE | 2024-07-07 15:15 | MR_ITS ---
FINAL REPORT CLINICAL HISTORY: left sided thoracic back pain FINDINGS: Multiplanar MR imaging of the thoracic spine was performed without contrast. On the sagittal T2-weighted images, no significant disc degeneration is identified. There is no evidence of fracture. The vertebral alignment is normal. No bony mass is identified. The thoracic spinal cord has an unremarkable appearance without evidence of mass, edema or syrinx. There is no evidence of canal stenosis or cord compression. On the axial images, no focal disc protrusion is identified. There is no evidence of significant canal stenosis. No paraspinous soft tissue abnormality is seen. IMPRESSION: Unremarkable thoracic spine without evidence of acute bony abnormality, disc protrusion or canal stenosis. Reviewed, Interpreted and Dictated by Tyrone Santos MD Transcribed by Jaja Steele Authenticated and [facility]
--- OUTSIDE RECORDS SUMMARY | 2024-07-10 20:41 | XMS_ITS ---
Author Organization Unknown TREATMENT PLAN [facility] Start Date Provider Encounter for Check-up [id number] [facility]
--- OUTSIDE RECORDS SUMMARY | 2024-07-10 20:41 | XMS_ITS ---
Care Plan - [facility] Created on: July 10, 2024 NOY COOK : 1955 Sex: Female Author Organization [facility] Address [address] [place] [address] Phone Care Team Providers Care Straddle Bug Driver Name Role Phone DRE RAZO, [place] Unavailable [phone]
--- OUTSIDE RECORDS SUMMARY | 2024-07-10 20:41 | XMS_ITS ---
Author Organization [facility] Address [address] [place] [address] Phone Care Team Providers Care Ship Laborer Name Role Phone DRE RAZO, [place] Unavailable [phone] Plan of Treatment No Plan of Treatment Recorded Assessments Includes: Assessments for all patient encounters No Assessments Recorded Medical Equipment - Implanted Devices Includes: Current and historical Devices No Medical Equipment Recorded Medications Administered Includes: Administered Medications in patient's chart No Administered Medications Recorded Results Includes: Results from 07/11/2023 through 07/10/2024 No Results Recorded For Specified Dates History of Present Illness History of Present Illness not supported for this document type No History of Present Illness Recorded Social History No Social History Recorded - Smoking Status Unknown Medical History Includes: Medical History in patient's [...] Subscriber Relationship Effect blaine Dates 1 - [facility] [id number] NOY COOK Se lf Clinical Notes Includes: Signed Clinical Notes starting from 03/12/2022 No Clinical Notes Recorded
--- OUTSIDE RECORDS SUMMARY | 2024-07-10 20:41 | XMS_ITS | Continuity of Care Document ---
Author Organization [facility]. If a dditional information is needed, contact Health Information Management at [phone] Address [address] [place] [address] Phone Care Team Providers Care Construction Driver Name Role Phone Unavailable Unavailable Unavailable Unavailable Unavailable Unavailable Unavailable Unavailable Unavailable Unavailable Unavailable Unavailable Unavailable Unavailable Unavailable Unavailable Unavailable Unavailable Unavailable Unavailable Unavailable Unavailable Unavailable Unavailable Problems Dyspnea Onset:06-Jun-2023 Radha Arevalo MD Decreased urine output Onset:04-Jun-2023 Radha Arevalo MD Hypertensive disorder Onset:04-Jun-2023 Radha Arevalo MD Acute exacerbation of chroni c congestive heart failure Onset:01-May-2023 Chris Gallardo MD Acute exacerbation of chroni c obstructive pulmonary disease Onset:01-May-2023 Chris Gallardo MD Acute bronchitis Onset:30-Apr-2023 Anthony Du MD Mental Status Cognitive function finding 02-May-2023 Functional Status Functional finding 02-May-2023 Allergies and Adverse Reactions Sulfa(Sulfonamide Antibiotic s)(Allergy) Onset: 01-May-2023 Reaction:HIVES morphine(Allergy) Onset: 01-May-2023 Reaction:ANAPHYLAXIS Medications 60 ACTUAT fluticasone propio chaim 0.25 MG/ACTUAT / salmeterol 0.05 MG/ACTUAT Dry Powder Inhaler [Advair];1 PUFF INH BID Start:08-May-2023 Comments:1 PUFF INH BID NEBULIZER;EACH MISC ASDIR Start:08-May-2023 Comments:EACH MISC ASDIR albuterol 0.417 MG/ML Inhala tion Solution;1.25 MILLIGRAM INH QID Start:08-May-2023 Comments:1.25 MG INH QID As Needed for SOB amoxicillin 875 MG / clavula chaim 125 MG Oral Tablet;875 MILLIGRAM PO BID Start:07-May-2023 Comments:875 MG PO BID predniSONE 20 MG Oral Tablet ;20 MILLIGRAM PO C BK Start:07-May-2023 Comments:20 MG PO C BK Albuterol 0.83 MG/ML / Iprat ropium Trimble 0.17 MG/ML Inhalant Solution;Provider Administration Instructions:FOR ADMINISTRATION BY RESPIRATORY THERAPIST Quantity:1 Ezio Du DO Start:05-May-2023 Status:Discontinued Comments:Provider Administration Instructions:FOR ADMINISTRATION BY RESPIRATORY THERAPIST Albuterol 0.83 MG/ML / Iprat ropium Trimble 0.17 MG/ML Inhalant Solution;Provider Administration Instructions:FOR ADMINISTRATION BY RESPIRATORY THERAPIST Quantity:1 Ezio Du DO Start:04-May-2023 Status:Discontinued Comments:Provider Administration Instructions:FOR ADMINISTRATION BY RESPIRATORY THERAPIST carvedilol 12.5 MG Oral Tabl et;12.5 MILLIGRAM PO BID MEALS Start:03-May-2023 Comments:12.5 MG PO BID MEALS losartan potassium 50 MG Ora l Tablet;50 MILLIGRAM PO DAILY Start:03-May-2023 Comments:50 MG PO DAILY hydroCHLOROthiazide 25 MG / triamterene 37.5 MG Oral Capsule;1 CAPSULE PO DAILY Start:03-May-2023 Comments:1 CAP PO DAILY citalopram 20 MG Oral Tablet ;20 MILLIGRAM PO DAILY Start:03-May-2023 Comments:20 MG PO DAILY esomeprazole 40 MG Delayed R elease Oral Capsule;40 MILLIGRAM PO DAILY Start:03-May-2023 Comments:40 MG PO DAILY magnesium oxide 400 MG Oral Tablet;400 MILLIGRAM PO DAILY Start:03-May-2023 Comments:400 MG PO DAILY aspirin 81 MG Chewable Table t;81 MILLIGRAM PO DAILY Start:03-May-2023 Comments:81 MG PO DAILY cholecalciferol 0.025 MG Lynda wable Tablet;2000 UNITS PO DAILY Start:03-May-2023 Comments:2000 UNITS PO DAILY potassium citrate 5 MEQ Exte nded Release Oral Tablet;PO DAILY Start:03-May-2023 Status:Discontinued Comments:PO DAILY rosuvastatin calcium 5 MG Or al Tablet [Crestor];5 MILLIGRAM PO BEDTIME Start:03-May-2023 Status:Discontinued Comments:5 MG PO BEDTIME Albuterol 0.83 MG/ML / Iprat ropium Trimble 0.17 MG/ML Inhalant Solution;Provider Administration Instructions:FOR ADMINISTRATION BY RESPIRATORY THERAPIST Quantity:1 Loulou Lovett MD Start:02-May-2023 Status:Discontinued Comments:Provider Administration Instructions:FOR ADMINISTRATION BY RESPIRATORY THERAPIST TRESIBA FLEXTOUCH U-100;54 U NIT SUBCUTANEOUS DAILY Start:02-May-2023 Comments:54 UNIT SUBQ DAILY insulin lispro 100 UNT/ML In jectable Solution [HumaLOG];45 UNIT SUBCUTANEOUS TID MEALS Start:02-May-2023 Comments:45 UNIT SUBQ TID MEALS [id number] 60 ACTUAT albutero l 0.09 MG/ACTUAT Metered Dose Inhaler;1 PUFF INH Q4H PRN Start:30-Apr-2023 Comments:1 PUFF INH Q4H PRN As Needed for wheezing benzonatate 200 MG Oral Caps ule;200 MILLIGRAM PO TID PRN Start:30-Apr-2023 Comments:200 MG PO TID PRN As Needed for COUGH predniSONE 20 MG Oral Tablet ;40 MILLIGRAM PO DAILY Start:30-Apr-2023 Status:Discontinued Comments:40 MG PO DAILY Doxycycline 100 MG Oral Caps ule;100 MILLIGRAM PO BID Start:30-Apr-2023 Status:Discontinued Comments:100 MG PO BID Social History Smoking Status Never smoked tobacco Recorded: 04-Jun-2023 Never smoked tobacco Recorded: 02-May-2023 Never smoked tobacco Recorded: 30-Apr-2023
== END 2024-07-07 23:59 | disposition home or self-care (01) ==
LOC: RAD 14:54
PROVIDERS: PCP Internal Medicine; Visit Provider Internal Medicine
DX: M54.6 Pain in thoracic spine (principal)
CPT/HCPCS: 72146

== ENCOUNTER 2024-08-07 12:59 | Outpatient (CLI) | payer MEDICARE, SELFPAY ==
--- NOTE | 2024-08-07 | US_ITS ---
FINAL REPORT CLINICAL HISTORY: HTN, DM, HLD, hx CVA with left sided deficit, left foot discoloration, bilateral rest pain and claudication. FINDINGS: ANKLE-BRACHIAL PRESSURE INDICES Pressure indices are as follows: RIGHT LOWER EXTREMITY: Ankle-brachial pressure index: 0.99 Comments: Normal LEFT LOWER EXTREMITY: Ankle-brachial pressure index: 1.01 Comments: Normal IMPRESSION: No evidence of significant obstructive peripheral vascular disease of the lower extremities Reviewed, Interpreted and Dictated by Senait Reyes MD Transcribed by Radha Hassan Authenticated and [facility]
--- OUTSIDE RECORDS SUMMARY | 2024-08-07 13:01 | XMS_ITS | Continuity of Care Document ---
Author Organization [facility]. If a dditional information is needed, contact Health Information Management at [phone] Address [address] [place] [address] Phone Care Team Providers Care Metrology Specialist Name Role Phone Unavailable Unavailable Unavailable Unavailable Unavailable Unavailable Unavailable Unavailable Unavailable Unavailable Unavailable Unavailable Unavailable Unavailable Unavailable Unavailable Unavailable Unavailable Unavailable Unavailable Unavailable Unavailable Unavailable Unavailable Problems Dyspnea Onset:06-Jun-2023 Radha Arevalo MD Decreased urine output Onset:04-Jun-2023 Radha Arevalo MD Hypertensive disorder Onset:04-Jun-2023 Radha Arevalo MD Acute exacerbation of chroni c congestive heart failure Onset:01-May-2023 hCris Gallardo MD Acute exacerbation of chroni c [...] INH BID Start:08-May-2023 Comments:1 PUFF INH BID albuterol 0.417 MG/ML Inhala tion Solution;1.25 MILLIGRAM INH QID Start:08-May-2023 Comments:1.25 MG INH QID As Needed for SOB NEBULIZER;EACH MISC ASDIR Start:08-May-2023 Comments:EACH MISC ASDIR amoxicillin 875 MG / clavula chaim 125 MG Oral Tablet;875 MILLIGRAM PO BID Start:07-May-2023 Comments:875 MG PO BID predniSONE 20 MG Oral Tablet ;20 MILLIGRAM PO C BK Start:07-May-2023 Comments:20 MG PO C BK Albuterol 0.83 MG/ML / Iprat ropium [place] 0.17 MG/ML Inhalant Solution;Provider Administration Instructions:FOR ADMINISTRATION BY RESPIRATORY THERAPIST Quantity:1 Ezio Du DO Start:05-May-2023 Status:Discontinued Comments:Provider Administration Instructions:FOR ADMINISTRATION BY RESPIRATORY THERAPIST Albuterol 0.83 MG/ML / Iprat ropium [place] 0.17 MG/ML Inhalant Solution;Provider Administration Instructions:FOR ADMINISTRATION BY RESPIRATORY THERAPIST Quantity:1 Ezio Du DO Start:04-May-2023 Status:Discontinued Comments:Provider Administration Instructions:FOR ADMINISTRATION BY RESPIRATORY THERAPIST aspirin 81 MG Chewable Table t;81 MILLIGRAM PO DAILY Start:03-May-2023 Comments:81 MG PO DAILY citalopram 20 MG Oral Tablet ;20 MILLIGRAM PO DAILY Start:03-May-2023 Comments:20 MG PO DAILY esomeprazole 40 MG Delayed R elease Oral Capsule;40 MILLIGRAM PO DAILY Start:03-May-2023 Comments:40 MG PO DAILY magnesium oxide 400 MG Oral Tablet;400 MILLIGRAM PO DAILY Start:03-May-2023 Comments:400 MG PO DAILY losartan potassium 50 MG Ora l Tablet;50 MILLIGRAM PO DAILY Start:03-May-2023 Comments:50 MG PO DAILY rosuvastatin calcium 5 MG Or al Tablet [Crestor];5 MILLIGRAM PO BEDTIME Start:03-May-2023 Status:Discontinued Comments:5 MG PO BEDTIME carvedilol 12.5 MG Oral Tabl et;12.5 MILLIGRAM PO BID MEALS Start:03-May-2023 Comments:12.5 MG PO BID MEALS hydroCHLOROthiazide 25 MG / triamterene 37.5 MG Oral Capsule;1 CAPSULE PO DAILY Start:03-May-2023 Comments:1 CAP PO DAILY cholecalciferol 0.025 MG Lynda wable Tablet;2000 UNITS PO DAILY Start:03-May-2023 Comments:2000 UNITS PO DAILY potassium citrate 5 MEQ Exte nded Release Oral Tablet;PO DAILY Start:03-May-2023 Status:Discontinued Comments:PO DAILY Albuterol 0.83 MG/ML / Iprat ropium [place] 0.17 MG/ML Inhalant Solution;Provider Administration Instructions:FOR ADMINISTRATION BY RESPIRATORY THERAPIST Quantity:1 Loulou Lovett MD Start:02-May-2023 Status:Discontinued Comments:Provider Administration Instructions:FOR ADMINISTRATION BY RESPIRATORY THERAPIST insulin lispro 100 UNT/ML In jectable Solution [HumaLOG];45 UNIT SUBCUTANEOUS TID MEALS Start:02-May-2023 Comments:45 UNIT SUBQ TID MEALS TRESIBA FLEXTOUCH U-100;54 U NIT SUBCUTANEOUS DAILY Start:02-May-2023 Comments:54 UNIT SUBQ DAILY predniSONE 20 MG Oral Tablet ;40 MILLIGRAM PO DAILY Start:30-Apr-2023 Status:Discontinued Comments:40 MG PO DAILY benzonatate 200 MG Oral Caps ule;200 MILLIGRAM PO TID PRN Start:30-Apr-2023 Comments:200 MG PO TID PRN As Needed for COUGH Doxycycline 100 MG Oral Caps ule;100 MILLIGRAM PO BID Start:30-Apr-2023 Status:Discontinued Comments:100 MG PO BID [id number] ACTUAT albutero l 0.09 MG/ACTUAT Metered Dose Inhaler;1 PUFF INH Q4H PRN Start:30-Apr-2023 Comments:1 PUFF INH Q4H PRN As Needed for wheezing Social History Smoking Status Never smoked tobacco Recorded: 04-Jun-2023 Never smoked tobacco Recorded: 02-May-2023 Never smoked tobacco Recorded: 30-Apr-2023
== END 2024-08-07 23:59 | disposition home or self-care (01) ==
LOC: RT 13:00
PROVIDERS: PCP Internal Medicine; Visit Provider Nurse Practitioner
DX: E78.5 Hyperlipidemia, unspecified (principal); I10 Essential (primary) hypertension; L81.9 Disorder of pigmentation, unspecified; I73.9 Peripheral vascular disease, unspecified; E11.9 Type 2 diabetes mellitus without complications; R09.89 Other specified symptoms and signs involving the circulatory and respiratory systems
CPT/HCPCS: 93923

== ENCOUNTER 2024-09-11 11:09 | Outpatient (POV) | payer MEDICARE, SELFPAY ==
--- OUTSIDE RECORDS SUMMARY | 2023-05-30 05:45 | XMS_ITS ---
Author Organization [employer], [facility] Address [address] [place] [address] Care Team Providers Care Digital Ad Trafficker Name Role Phone SUSIEGARY DAMONNDRE Unavailable [phone] BETSY RICHARDS Unavailable Unavailable Florian Holguin Unavailable [phone] Allergies Allergen (clinical drug ingredient) Drug/Non Drug Allergy documented on EMR Reaction Allergy Type Onset Date Status morphine Morphine Unknown Drug Allergy Active sulfacetamide Sulfacetamide Unknown Drug Allergy Active REASON FOR VISIT follow-up hospitalization [facility]. Initial consult/echo/d/c summary in chart Problems Problem Type SNOMED Code ICD Code Onset Dates Problem Status W/U Status Risk Notes Problem Diastolic heart failure (744546879) CHF, diastolic (I50.30) Active confirmed Problem 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) Active confirmed Problem Gastroesophageal reflux disease (359979673) GERD without esophagitis (K21.9) Active confirmed Problem Dysphagia (49875117) Dysphagia, unspecified type (R13.10) Active confirmed Problem Obstructive sleep apnea syndrome (67392346) MAYELIN (obstructive sleep apnea) (G47.33) Active confirmed Vital Signs Temperature 96.4 degrees Fahrenheit 05/30/19 24 Heart Rate 71 /min 05/30/2023 Respiratory Rate 15 /min 05/30/2023 Blood pressure systolic 124 mm Hg 05/30/19 24 Blood pressure diastolic 62 mm Hg 024 BMI 48.72 kg/m2 05/30/2023 Oximetry 96 % 05/30/2023 Height 60 in 05/30/2023 Weight 249.5 lbs 05/30/2023 Encounters Encounter Location Date Provider Diagnosis [facility] [address] [place] [address] 05/30/2023 Florian Holguin Acute bronchitis, unspecified J20.9 ; CHF, diastolic I50.30 ; 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 I63.211 ; GERD without esophagitis K21.9 ; Dysphagia, unspecified type R13.10 and MAYELIN (obstructive sleep apnea) G47.33 Assessments Encounter Date Diagnosis (ICD Code) Assessment Notes Treatment Notes Treatment Clinical Notes Section Notes 05/30/2023 Acute bronchitis, unspecified (ICD-10 - J20.9) M/L 2/2 ASPIRATION AND REFLUX CONTINUE ADVIAR BID INH OBTAIN PFT'S 05/30/2023 CHF, diastolic (ICD-10 - I50.30) 05/30/2023 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 (ICD-10 - I63.211) 05/30/2023 GERD without esophagitis (ICD-10 - K21.9) 05/08/23 ESOPHAGRAM SHOWED SEVERE REFLUX RECOMMEND INCREASING OTC NEXIUM TO BID 05/30/2023 Dysphagia, unspecified type (ICD-10 - R13.10) MIKLD PHARYNGEAL DYSPHAGIA NOTED ON MBS 05/07/23; M/L RESIDUAL EFFECTS FROM 2014 CVA 05/30/2023 MAYELIN (obstructive sleep apnea) (ICD-10 - G47.33) ON BIPAP 17/03; COMPLIANT FOLLOWS WITH PCP Plan Of Treatment Treatment Notes Assessment Notes Acute bronchitis, unspecified M/L 2/2 ASPIRATION AND REFLUX CONTINUE ADVIAR BID INH OBTAIN PFT'S GERD without esophagitis 05/08/23 ESOPHAGRAM SHOWED SEVERE REFLUX RECOMMEND INCREASING OTC NEXIUM TO BID Dysphagia, unspecified type MIKLD PHARYN GEAL DYSPHAGIA NOTED ON MBS 05/07/23; M/L RESIDUAL EFFECTS FROM 2014 CVA MAYELIN (obstructive sleep apnea) ON BIPAP 17/03; COMPLIANT FOLLOWS WITH PCP Pending Test Test Name Order Date PFTS with DLCO 05/30/2023 Next Appt Details Follow Up: 4 Weeks, Reason: PFT Progress Notes * NOY COOK FDOB: 4 (68 yo F)Acc No.[id number]:05/30/2023 Progress Note Patient: NOY KO Provider: Shawn Holguin DO :1955 A ge:67 Y S ex:Female Date:05/30/2023 Address:[address] [place] [address] [id number] Subjective: * Chief Complaints: * 1 . follow-up hospitalization [facility]. Initial consult/echo/d/c summary in chart. * HPI: A sthma Control Test: Mrs. Cook is a 67 y/o F with a past medical history significant for congestive heart failure, ??COPD, hypertension, hyperlipidemia, diabetes, CVA who presents to [facility] on 05/01 for the evaluation of worsening shortness of breath and wheezing. She initially presented to [facility] 1 day prior for similar symptoms was offered admission however she declined. Upon her arrival to the ER she was placed on BiPAP therapy due to worsening respiratory distress. She reports a history of CVA and what sounds like an NSTEMI. She she reports undergoing left heart catheterization in the past and there has no been no blockages. At the time presentation she did notice that she has had worsening lower extremity edema and a 10-15 lb weight gain. Pulmonary is consulted for further evaluation. 05/30/23 PT S/E IN OFFICE. SHE REPORTS RESIDUAL LEFT SIDED DEFICITS FROM CVA 2014. WE REVIEWED HER ESOPHAGRAM WHICH SHOWED SEVERE REFLUX. MBS SHOWED FLASH PENETRATION WITH LIQUIDS. SHE REPORT SIGNIFICANT IMPROVEMENT IN HER NEELY, SOB, AND COUGH. SHE STILL REPORTS ISSUES WITH B/L RIB PAIN ESPECIALLY DURING LAUGHING EPSIDOES # Acute hypoxic respiratory failure, req intermittent Bipap, now on NC: M/L 2/2 acute on chronic CHF +/- CAP +/-rule out atypicals Flu a and B negative, COVID negative, RVP negative, urine strep negative # Acute on chronic diastolic congestive heart failure ProBNP 1456. CXR- cardiomegaly and? Congestion # Acute bronchitis: M/L 2/2 r/o esophageal and/or dysphagia issues no history of smoking, asthma, etc; doubt COPD # calcified lymphadenopathy: m/L 2/2 prior granulomatous disease # Neutrophilic leukocytosis: M/L 2/2 stress # morbid obesity # DM2: suboptimal 2/2 steroids # mildly elevated D-dimer # MAYELIN compliant on home CPAP # h/o CVA 2014. * Medical History: D IABETES TYPE 2, HEART DISEAS, HYPERTENSION, COPD, STROKE, ANXIETY, ESSENTIAL TREMOIS, DEPRESSION, WATER RETENSION, SINUSITIS, GERD, SLEEP APNEA, HIGH CHOLESTEROL, THALAMIC PAIN SYNDROME, MOVEMENT DISORDER. * Surgical History: T ONSILLECTOMY , WISDOM TEETH , TUBAL LIGATION , HEART CATH . * Allergies: M orphine: Allergy, Sulfacetamide: Allergy. Objective: * Vitals: T emp:96.4F, HR:71/min, RR:15/min, BP:124/62mm Hg, BMI:48.72Index, Oxygen sat %:96%, Pain scale:01-10, Ht: 60 in, Wt:249.5lbs. * Examination: G eneral Examination: HEAD: n ormocephalic, atraumatic. EYES: B OTH EYES, sclera non-icteric, conjunctiva clear.? EARS: n ormal. NOSE: s inuses nontender bilaterally. ORAL CAVITY: m ucosa moist, tongue in midline. THROAT: c lear. NECK/THYROID: n o cervical lymphadenopathy, no jugular venous distention, no thyromegaly, trachea midline. SKIN: g ood turgor, no rashes, warm and dry. HEART: n o murmurs, rubs, gallops, regular rate and rhythm, S1, S2 normal, no peripheral edema. LUNGS: c lear to auscultation bilaterally, no wheezes, rales, rhonchi, normal respiratory effort. CHEST: n ormal shape and expansion. ABDOMEN: n ormal, bowel sounds present, no guarding or rigidity, no rebound tenderness, soft, non tender on palpation, no hepatosplenomegaly. MUSCULOSKELETAL: n o swelling or deformity, normal gait and station. EXTREMITIES: n o clubbing, cyanosis, or edema. NEUROLOGIC: a lert and oriented, cooperative with exam, cranial nerves 2-12 grossly intact, motor strength normal upper and lower extremities, no rigidity, no tremor, sensory exam intact. PSYCH: a lert, oriented, cooperative with exam, appropriate affect, intact judgement and insight. Assessment: * Assessment: 1. A cute bronchitis, unspecified - J20.9 (Primary) 2 . C HF, diastolic - I50.30 3 . C erebral infarction due to unspecified occlusion or stenosis of right vertebral artery - I63.211 S pecify :BASAL THALAMIC IN 2015 4 . G ERD without esophagitis - K21.9 5 . D ysphagia, unspecified type - R13.10 6 . O SA (obstructive sleep apnea) - G47.33 ?Specify :COMLIANT ON BIPAP Plan: * Treatment: 2. G ERD without esophagitis Notes: 05/08/23 ESOPHAGRAM SHOWED SEVERE REFLUX RECOMMEND INCREASING OTC NEXIUM TO BID 3. D ysphagia, unspecified type Notes: MIKLD PHARYNGEAL DYSPHAGIA NOTED ON MBS 05/07/23; M/L RESIDUAL EFFECTS FROM 2015 CVA ? 4. O SA (obstructive sleep apnea) Notes: ON BIPAP 17/03; COMPLIANT FOLLOWS WITH PCP * Follow Up: 4 Weeks (Reason: PFT) * Billing Information: * Visit Code: [id number] Office Visit, Est Pt., Level 5. * Procedure Codes: * Electronic signature of Florian Holguin DO on 09/11/2024 at 01:09 PM EDT Sign off status: Pending * Provider: Shawn Holguin DO Date: 0 05/30/2023 Generated for Gordon mcfarlane/Corazon/Glendy on: 0 09/11/2024 01:09 PM EDT History and Physical Notes * HPI (History of Present Illness) Category Sub-Category Detail Notes Category Not es Asthma Control Test Mrs. Cook is a 67 y/o F with a past medical history significant for congestive heart failure, ??COPD, hypertension, hyperlipidemia, diabetes, CVA who presents to [facility] on 05/01 for the evaluation of worsening shortness of breath and wheezing. She initially presented to [facility] 1 day prior for similar symptoms was offered admission however she declined. Upon her arrival to the ER she was placed on BiPAP therapy due to worsening respiratory distress. She reports a history of CVA and what sounds like an NSTEMI. She she reports undergoing left heart catheterization in the past and there has no been no blockages. At the time presentation she did notice that she has had worsening lower extremity edema and a 10-15 lb weight gain. Pulmonary is consulted for further evaluation. 05/30/23 PT S/E IN OFFICE. SHE REPORTS RESIDUAL LEFT SIDED DEFICITS FROM CVA 2014. WE REVIEWED HER ESOPHAGRAM WHICH SHOWED SEVERE REFLUX. MBS SHOWED FLASH PENETRATION WITH LIQUIDS. SHE REPORT SIGNIFICANT IMPROVEMENT IN HER NEELY, SOB, AND COUGH. SHE STILL REPORTS ISSUES WITH B/L RIB PAIN ESPECIALLY DURING LAUGHING EPSIDOES # Acute hypoxic respiratory failure, req intermittent Bipap, now on NC: M/L 2/2 acute on chronic CHF +/- CAP +/-rule out atypicals Flu a and B negative, COVID negative, RVP negative, urine strep negative # Acute on chronic diastolic congestive heart failure ProBNP 1456. CXR- cardiomegaly and? Congestion # Acute bronchitis: M/L 2/2 r/o esophageal and/or dysphagia issues no history of smoking, asthma, etc; doubt COPD # calcified lymphadenopathy: m/L 2/2 prior granulomatous disease # Neutrophilic leukocytosis: M/L 2/2 stress # morbid obesity # DM2: suboptimal 2/2 steroids # mildly elevated D-dimer # MAYELIN compliant on home CPAP # h/o CVA 2014 Examination Category Sub-Category Detail Notes Category Not es General Examination HEAD: normocephalic, atraum atic EYES: BOTH EYES, sclera no n-icteric, conjunctiva clear EARS: normal NOSE: sinuses nontender bi laterally THROAT: clear NECK/THYROID: no cervical lymphade nopathy, no jugular venous distention, no thyromegaly, trachea midline HEART: no murmurs, rubs, ga llops, regular rate and rhythm, S1, S2 normal, no peripheral edema CHEST: normal shape and exp ansion LUNGS: clear to auscultatio n bilaterally, no wheezes, rales, rhonchi, normal respiratory effort ABDOMEN: normal, bowel sounds present, no guarding or rigidity, no rebound tenderness, soft, non tender on palpation, no hepatosplenomegaly NEUROLOGIC: alert and oriented, cooperative with exam, cranial nerves 2-12 grossly intact, motor strength normal upper and lower extremities, no rigidity, no tremor, sensory exam intact SKIN: good turgor, no rash es, warm and dry EXTREMITIES: no clubbing, cyanosi s, or edema MUSCULOSKELETAL: no swelling or defor mity, normal gait and station PSYCH: alert, oriented, distance learning coordinator perative with exam, appropriate affect, intact judgement and insight ORAL CAVITY: mucosa moist, tongue in midline
--- OUTSIDE RECORDS SUMMARY | 2023-07-23 04:00 | XMS_ITS ---
Author Organization [facility] Address [address] [place] [address] Care Team Providers Care Customs And Border Protection Officer Name Role Phone Cathi Malin Unavailable [phone] Yoon Butler [phone] REASON FOR VISIT 4wk f/u swelling Encounters Encounter Location Date Provider Diagnosis [facility] [address] [place] [address] 07/23/2023 Yoon Butler Plan Of Treatment No Information Progress Notes * NOY COOK FDOB: (68 yo F)Acc No.[id number]:07/23/2023 Progress Notes Patient: NOY KO Provider: ANNAT Cornell :1955 A ge:67 Y S ex:Female Date:07/23/2023 Address:[address] [place] [address], [id number] Subjective: * Chief Complaints: * 1 . 4wk f/u swelling. * Medical History: Objective: * Vitals: Assessment: Plan: * Treatment: * Billing Information: * Visit Code: * Procedure Codes: * Electronic signature of Deirdre Butler APRN on 09/11/2024 at 01:10 PM EDT Sign off status: Pending * Provider: ANANT Cornell Date: 0 07/23/2023 Generated for Yvettei maeve/Faxing/eTransmitting on: 0 09/11/2024 01:10 PM EDT
--- OUTSIDE RECORDS SUMMARY | 2023-08-08 06:30 | XMS_ITS ---
Author Organization [facility] Address [address] [facility] [address] Care Team Providers Care Stevedore Dock Name Role Phone SUSIE, BETSY Unavailable [phone] BETSY RICHARDS Unavailable Unavailable Florian Holguin Unavailable [phone] Allergies Allergen (clinical drug ingredient) Drug/Non Drug Allergy documented on EMR Reaction Allergy Type Onset Date Status morphine Morphine Unknown Drug Allergy Active sulfacetamide Sulfacetamide Unknown Drug Allergy Active REASON FOR VISIT follow-up hospitalization [facility]. Initial consult/echo/d/c summary in chart, unable to obtain d/c summary Encounters Encounter Location Date Provider Diagnosis [email or web address] [address] [place] [address] 08/08/2023 Florian Holguin Acute bronchitis, unspecified J20.9 [...] NOY COOK FDOB: 4 (68 yo F)Acc No.[id number]:08/08/2023 Progress Notes Patient: NOY KO Provider: Shawn Holguin DO :1955 A ge:67 Y S ex:Female Date:08/08/2023 Address:[address] [place] [phone] Subjective: * Chief Complaints: * 1 . follow-up hospitalization [facility]. Initial consult/echo/d/c summary in chart. 2. Unable to obtain d/c summary. * HPI: A sthma Control Test: Mrs. Cook is a 67 y/o F with a past medical history significant for congestive heart failure, ??COPD, hypertension, hyperlipidemia, diabetes, CVA who presents to [place] [facility] on 05/01 for the evaluation of worsening shortness of breath and wheezing. She initially presented to [place] [facility] 1 day prior for similar symptoms [...] of Florian Holguin DO on 09/11/2024 at 01:08 PM EDT Sign off status: Pending * Provider: Shawn Holguin DO Date: 0 08/08/2023 Generated for Gordon mcfarlane/Corazon/Saryitting on: 09/11/2024 01:08 PM EDT History and Physical Notes * HPI (History of Present Illness) Category Sub-Category Detail Notes Category Not es Asthma Control Test Mrs. Cook is a 67 y/o F with a past medical history significant for congestive heart failure, ??COPD, hypertension, hyperlipidemia, diabetes, CVA who presents to [place] [facility] on 05/01 for the evaluation of worsening shortness of breath and wheezing. She initially presented to [place] [facility] 1 day prior for similar symptoms [...] normal gait and station PSYCH: alert, oriented, electronic funds transfer coordinator perative with exam, appropriate affect, intact judgement and insight ORAL CAVITY: mucosa moist, tongue in midline
--- OUTSIDE RECORDS SUMMARY | 2024-09-11 11:13 | XMS_ITS | Continuity of Care Document ---
Author Organization [facility]. If a dditional information is needed, contact Health Information Management at [phone] Address [address] [place] [address] Phone Care Team Providers Care Tools Programmer Name Role Phone Unavailable Unavailable Unavailable Unavailable [...] BK Albuterol 0.83 MG/ML / Iprat ropium Louise 0.17 MG/ML Inhalant Solution;Provider Administration Instructions:FOR ADMINISTRATION BY RESPIRATORY THERAPIST Quantity:1 Ezio Du DO Start:05-May-2023 Status:Discontinued Comments:Provider Administration Instructions:FOR ADMINISTRATION BY RESPIRATORY THERAPIST Albuterol 0.83 MG/ML / Iprat ropium Louise 0.17 MG/ML Inhalant Solution;Provider Administration Instructions:FOR ADMINISTRATION BY RESPIRATORY THERAPIST Quantity:1 Ezio Du DO Start:04-May-2023 Status:Discontinued Comments:Provider Administration Instructions:FOR ADMINISTRATION BY RESPIRATORY THERAPIST citalopram 20 MG Oral Tablet ;20 MILLIGRAM PO DAILY Start:03-May-2023 Comments:20 MG PO DAILY esomeprazole 40 MG Delayed R elease Oral Capsule;40 MILLIGRAM PO DAILY Start:03-May-2023 Comments:40 MG PO DAILY magnesium oxide 400 MG Oral Tablet;400 MILLIGRAM PO DAILY Start:03-May-2023 Comments:400 MG PO DAILY aspirin 81 MG Chewable Table t;81 MILLIGRAM PO DAILY Start:03-May-2023 Comments:81 MG PO DAILY losartan potassium 50 MG [...] DAILY Albuterol 0.83 MG/ML / Iprat ropium Louise 0.17 MG/ML Inhalant Solution;Provider Administration Instructions:FOR ADMINISTRATION [...] BID Start:30-Apr-2023 Status:Discontinued Comments:100 MG PO BID benzonatate 200 MG Oral Caps ule;200 MILLIGRAM PO TID PRN Start:30-Apr-2023 Comments:200 MG PO TID PRN As Needed for COUGH [id number] ACTUAT albutero l 0.09 MG/ACTUAT Metered Dose Inhaler;1 PUFF INH Q4H PRN Start:30-Apr-2023 Comments:1 PUFF INH Q4H PRN As Needed for wheezing Social History Smoking Status Never smoked tobacco Recorded: 04-Jun-2023 Never smoked tobacco Recorded: 02-May-2023 Never smoked tobacco Recorded: 30-Apr-2023
--- NOTE | 2024-09-11 11:50 | XR_ITS ---
FINAL REPORT CLINICAL HISTORY: left shoulder pain COMPARISON: None FINDINGS: LEFT SHOULDER 3 views of the left shoulder were obtained. There is no acute fracture or dislocation. Visualized joint spaces are normally aligned. There is mild narrowing of the glenohumeral joint. Soft tissues are unremarkable. IMPRESSION: Mild degenerative change, without acute osseous abnormality. Reviewed, Interpreted and Dictated by Tyrone Santos MD Transcribed by Lu Jackson Authenticated and [facility]
--- NOTE | 2024-09-11 12:06 | EXP.PAIN.OV ---
HPI Data of Consult Patient: new to practice Consult date: 09/11/24 Requesting Physician: Leni Cox APRN Primary Care Provider: Cal Chun DO Reason for consult: Mid back pain, left shoulder pain, left hip pain History of present illness: Ms. Montes is a 68 year old female who presents today as a new patient. She is a referral from Cal Chun's office. Today she rates her pain a 4 out of 10. Patient states she has multiple pain areas that all started around 2014 when she had a stroke and failed. Patient states that she has continued to have issues since. Patient states that it is an overall constant tingling sensation like a TENS unit is applied that goes down to her left foot. Patient denies states her left hip is just a chronic aching sensation that is worse with increased walking and feels like it goes out of place even. Patient states her mid back in general is an aching sensation with occasional sharp shooting pains. Patient also feels like her left shoulder has a knots with very sensitive area with palpation. Patient denies any recent imaging on this joint. Patient does have a history of heart related problems and does see a forklift material handler on a regular basis in [place]. She is scheduled for a stress test coming up. Patient does feel like overall she has tried bvmi-[id number]-[id number] medicines such as Tylenol along with heat and ice and topicals with minimal changes. Patient is currently prescribed tizanidine 2 mg however feels like that still causes increased grogginess and that she only takes it at bedtime for this reason. Patient states she has had physical therapy with no improvement. She denies any previous injections or surgery. Her Tan has been reviewed and is appropriate. Pain at rest (0-10 scale): 4 Has patient had previous pain injection?: No Conservative treatment options previously tried: Home exercise plan (Longer than 12 weeks) and Physical Therapy (No changes) cc:: CC: Leni Cox APRN [facility] Disclaimer: The information contained in this section may have been updated after the patient was seen, as this information can be updated by other users. Medical History MAYELIN on CPAP History of ganglion cyst History of stroke Hx of fracture of clavicle Hx of colonic polyps Hx of basal cell carcinoma Thalamic pain syndrome (hyperesthetic) Spastic hemiparesis affecting nondominant side High triglycerides High cholesterol Hx of dizziness History of muscle spasm GERD (gastroesophageal reflux disease) Hx of urinary tract infection Sinusitis Water retention Depression Anxiety Essential tremor Hx of completed stroke Heart disease Type 2 diabetes mellitus BMI 50.0-59.9, adult Stroke Congestive heart failure Hypertension Sleep apnea Diabetes mellitus Surgical History H/O hemicolectomy Hx of cardiac cath History of loop recorder Hx of umbilical hernia repair History of esophagogastroduodenoscopy (EGD) Hx of oral surgery Hx laparoscopic cholecystectomy History of removal of skin mole Hx of tubal ligation Hx of wisdom tooth extraction Hx of tonsillectomy History of right hemicolectomy History of laparoscopic cholecystectomy History of hernia repair History of hysterectomy Family History Other Colon cancer Heart disease Pancreatic cancer Social History Smoking Status: Never smoker alcohol intake: current alcohol intake frequency: holidays/special occasions only substance use type: denies use current occupational status: disabled Travel in the last 8 weeks?: Inside the [place] household members: spouse housing: house marital status: number of children: 3 eliseo/orthodoxy: Orthodox Review of Systems Review of Systems Review of systems:: pertinent systems reviewed and negative unless documented below Review of systems (narrative): Review of Systems: General: No recent weight changes, no fever, no sleep disturbances Respiratory: No cough, no shortness of air, no recurring pulmonary infections Cardiovascular/peripheral vascular: No chest pain, no palpitations, no edema, no shortness of breath Gastrointestinal: No new onset incontinence, normal bowel movements reported Genitourinary: No new onset incontinence Musculoskeletal: Mid back pain, left shoulder pain, left hip pain, left leg pain Psychiatric: [Normal mood/affect] Neurological: [Denies weakness in extremities], [denies balance issues] Meds Home Medications and Allergies Home Medications ?Medication ?Instructions ?Recorded ?Confirmed ?Type aspirin 81 mg tablet,delayed 81 mg PO DAILY Supplement 04/16/17 08/08/24 History release (Aspir-) citalopram 20 mg tablet 30 mg PO DAILY 04/08/20 08/08/24 History magnesium 200 mg tablet 400 mg PO DAILY 12/30/20 08/08/24 History esomeprazole magnesium 40 mg 40 mg PO BID 08/25/23 08/08/24 History capsule,delayed release (Nexium) acetaminophen 325 mg capsule 325 mg PO QID PRN 06/11/24 08/08/24 History insulin degludec 100 unit/mL (3 55 unit SQ HS 06/11/24 08/08/24 History mL) subcutaneous pen (Tresiba FlexTouch U-100 insulin) tizanidine 4 mg capsule 4 mg PO HS PRN 06/11/24 08/08/24 History dulaglutide 0.75 mg/0.5 mL 0.75 mg (0.5 mL) SQ WEEKLY #2.5 mL 07/09/24 08/08/24 Rx subcutaneous pen injector (Trulicity) insulin lispro 100 unit/mL 60 unit (0.6 mL) SQ TID #360 mL 07/09/24 08/08/24 Rx subcutaneous cartridge (Humalog U-100 Insulin) blood-glucose,television receiver analyzer,cont #1 ea 07/11/24 08/08/24 Rx (Dexcom G7 Industrial Locomotive Operator) carvedilol 12.5 mg tablet 12.5 mg PO BID #180 tabs 07/30/24 08/08/24 Rx furosemide 40 mg tablet 40 mg PO DAILY #90 tabs 07/30/24 08/08/24 Rx ammonium lactate 12 % topical cream 1 applic topical BID dry skin, 07/31/24 08/08/24 Rx callus care 30 days #385 grams blood-glucose sensor (Dexcom G7 #3 ea 08/08/24 08/08/24 Rx Sensor device) telmisartan 40 mg tablet 40 mg PO DAILY #30 tabs 08/08/24 08/08/24 Rx terbinafine HCl 250 mg tablet 250 mg PO DAILY #30 tabs 08/08/24 08/08/24 Rx rosuvastatin 5 mg tablet 5 mg PO DAILY #90 tabs 09/10/24 Rx New Prescriptions to Start Prescriptions: Allergies Allergy/AdvReac Type Severity Reaction Status Date / Time betamethasone (BETAMETHASONE) Allergy Severe S-SWELLS-OR Verified 08/08/24 14:40 AL/THROAT morphine (MORPHINE) Allergy Severe S-DIFF. Verified 08/08/24 14:40 BREATHING SULFONE Allergy Intermediate NA-NAUSEA Uncoded 08/08/24 14:40 Objective Narrative: Physical Exam: General: Alert and oriented x3, no acute distress, pleasant and cooperative Lungs: Respirations even and unlabored, symmetrical chest expansion Eyes: PERRL Musculoskeletal: Flexion and extension of lumbar [spine] somewhat guarded secondary to pain, [antalgic gait noted] point tenderness along left SI with positive left Olvin's, Breana's, Gaenslen's, compression and distraction exam; point tenderness along her bilateral trapezius muscles, right worse than left Neurological: Speech clear, no gross sensory deficit Assessment and Plan *Assessment and plan (1) Left shoulder pain: Status: Acute Category: Medical Code(s): M25.512 - Pain in left shoulder (2) Left-sided thoracic back pain: Status: Acute Category: Medical Code(s): M54.6 - Pain in thoracic spine (3) Left hip pain: Status: Acute Category: Medical Code(s): M25.552 - Pain in left hip (4) Sacroiliitis: Status: Acute Category: Medical Code(s): M46.1 - Sacroiliitis, not elsewhere classified (5) Myofascial pain: Status: Acute Category: Medical Code(s): M79.18 - Myalgia, other site Plan I did review over with the patient that there were several injections that she may be a beneficial candidate of however she states she is not necessarily a fan of injections. We will order the patient a compounded cream and I have recommended her to try Tylenol arthritis. Patient will return to clinic in 1 month for reevaluation of symptoms and plan of care. Patient has been instructed to contact the clinic with any concerns before the next appointment. Dr. Reynolds has reviewed this note and agrees with this plan of care. This note was dictated using voice recognition software and make contain errors or omissions. All injections are used with Lidocaine, Bupivacaine and dexamethasone. Occasionally urine drug screen is needed to verify patient's compliance with our office pain contract. This is ordered based off specific treatments related to chronic pain with the potential to abuse certain medications.
--- OUTSIDE RECORDS SUMMARY | 2024-09-11 13:09 | XMS_ITS | Patient Health Record ---
Author Organization [facility] Address [address] [place] [address] Care Team Providers Care Air Brush Operator Name Role Phone Cathi Malin Unavailable [phone] Art Aguirre Unavailable [phone] Allergies Allergen (clinical drug ingredient) Drug/Non Drug Allergy documented on EMR Reaction Allergy Type Onset Date Status morphine Morphine anaphylaxis Drug Allergy Activ e Substance with sulfonamide structure and antibacterial mechanism of action (substance) Sulfa Antibiotics rash Drug Allergy Active Reason For Referral No Information Medications Medication SIG (Take, Route, Frequency, Duration) Notes Start Date End Date Status Potassium 99 MG 1 tablet Orally Once a day Active Vitamin D3 Active Tresiba FlexTouch 200 UNIT/ML Inject 55 units Subcutaneous At Bedtime Active tiZANidine HCl 4 MG 1 tablet as needed O rally Three times a day Active HumaLOG 100 UNIT/ML Inject 45 units Inje ction Three times a day Active Carvedilol 12.5 MG 1 tablet with food O rally Twice a day Active Tylenol 325 MG 1 tablet as needed O rally every 4 hrs Active Losartan Potassium 50 MG 1 tablet Orally Once a day Active Triamterene-HCTZ 37.5-25 MG 1 tablet in the morning Orally Once a day Active Furosemide 20 MG 1-2 tablet Orally On ce a day for 90 days 05/23/2023 Active Citalopram Hydrobromide 30 MG 1 capsule Orally Once a day Active Rosuvastatin Calcium 5 MG 1 tablet Orally Once a day Active NexIUM Active Aspirin Adult Low Dose 81 MG 1 tablet Orally Once a day A ctive Magnesium 400 MG as directed Orally Active Lasix 40 MG 1 tablet Orally twic e a day for 30 days 06/25/2023 Active Social History Alcohol Screen (Audit-C) Question Answer Notes Did you have a drink contain ing alcohol in the past year? Yes How often did you have a dri nk containing alcohol in the past year? Monthly or less (1 point) How many drinks did you have on a typical day when you were drinking in the past year? 1 or 2 drinks (0 point) How often did you have 6 or more drinks on one occasion in the past year? Less than monthly (1 point) Points 2 Interpretation Negative Problems Problem Type SNOMED Code ICD Code Onset Dates Problem Status W/U Status Risk Notes Problem 39846879 Type 2 diabetes mellitus with hyperglycemia (E11.65) Active confirmed Problem 94681936 Type 2 diabetes mellitus with other specified complication (E11.69) Active confirmed Problem 58208624 Vitamin D deficiency, unspecified (E55.9) Active confirmed Problem 945599323 Mixed hyperlipidemia (E78.2) Active confirmed Problem 092258594 Hypomagnesemia (E83.42) Active confirmed Problem 45513766 Hypokalemia (E87.6) Active confirmed Problem 441612423 longterm (current) use of insulin (Z79.4) Active confirmed Problem 97964498 Essential hypertension (I10) Active confirmed Problem 73985169 Chronic obstructive pulmonary disease, unspecified COPD type (J44.9) Active confirmed Problem Acute exacerbation of chronic obstructive airways disease (700440635) COPD exacerbation (J44.1) Active confirmed Problem 506374181 GERD without esophagitis (K21.9) Active confirmed Problem 79936268 Chronic congesti ve heart failure, unspecified heart failure type (I50.9) Active confirmed Encounters Encounter Location Date Provider Diagnosis [facility] [address] [place] [address] 11/06/2023 Art Aguirre Plan Of Treatment Pending Test Test Name Order Date Comp. Metabolic Panel (14) 05/23/2023 COMPREHENSIVE METABOLIC PANEL (86115) Insurance Providers Payer Name Payer Address Payer Phone Subscriber Number Group Number Insured Name Patient Relationship to Insured Coverage Start Date Coverage End Date /[facility] [address] [place], [place] [id number] NOY COOK Self - patient is the insured 4 Medical (General) History Medical History History ICD Code T2DM Hypertension Mixed Hyperlipidemia GERD sleep apnea colonoscopy 2020 polyps CHF STROKE Surgical History Surgery Date(Month/Year) tonsillectomy 1959 wisdom teeth removal 1966 tubal ligation 1977 left posterior thigh mole removal 1985 total hysterectomy 1995 laparoscopic cholecystectomy 1999 left radial head fracture 1999 basal cell carcinoma 2006 upper tooth extraction 2009 EGD, colonoscopy 2009 umbilical hernia 2007 right clavicular fracture 2010 lower tooth extraction 2015 basal ganglion; stroke 2015 heart cath 2015 heart cath 2017 heart cath 2019 breast biopsy 2017 necrobiosis, liprodocia (biospy) 2017 right hemicolectomy 2020
--- OUTSIDE RECORDS SUMMARY | 2024-09-11 13:09 | XMS_ITS | Patient Health Record ---
Author Organization [facility] Address [address] [place] [address] Care Team Providers Care Manager Renewable Energy Name Role Phone BETSY RICHARDS Unavailable [phone] SUSIEGARY DAMONNDRE Unavailable Unavailable Allergies Allergen (clinical drug ingredient) Drug/Non Drug Allergy documented on EMR Reaction Allergy Type Onset Date Status morphine Morphine Unknown Drug Allergy Active sulfacetamide Sulfacetamide Unknown Drug Allergy Active Reason For Referral No Information Problems Problem Type SNOMED Code ICD Code Onset Dates Problem Status W/U Status Risk Notes Problem Diastolic heart failure (671612250) CHF, diastolic (I50.30) Active confirmed Problem Gastroesophageal reflux disease (913986388) GERD without esophagitis (K21.9) Active confirmed Problem 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) Active confirmed Problem Obstructive sleep apnea syndrome (00430666) MAYELIN (obstructive sleep apnea) (G47.33) Active confirmed Problem Dysphagia (99989148) Dysphagia, unspecified type (R13.10) Active confirmed Plan Of Treatment Pending Test Test Name Order Date PFTS with DLCO 05/30/2023 Insurance Providers Payer Name Payer Address Payer Phone Subscriber Number Group Number Insured Name Patient Relationship to Insured Coverage Start Date Coverage End Date [facility] [place] [address] [place] [address] [id number] NOY COOK Self - patient is the insured Medical (General) History Medical History History ICD Code DIABETES TYPE 2 HEART DISEAS HYPERTENSION COPD STROKE ANXIETY ESSENTIAL TREMOIS DEPRESSION WATER RETENSION SINUSITIS GERD SLEEP APNEA HIGH CHOLESTEROL THALAMIC PAIN SYNDROME MOVEMENT DISORDER Surgical History Surgery Date(Month/Year) TONSILLECTOMY WISDOM TEETH TUBAL LIGATION HEART CATH
--- OUTSIDE RECORDS SUMMARY | 2024-09-11 13:09 | XMS_ITS | Clinical Summary ---
Author Organization Healthcare Address [address] [place] [address] Care Team Providers Care Dry Starch Supervisor Name Role Phone Unavailable Primary Care Provider Unavailabl e Family History Medical History Relation Name Comments Cardiac disorder Father Hypertension Father Cardiac disorder Maternal Grandfather Diabetes Maternal Grandfather Hypertension Maternal Grandfather Diabetes Mother Cardiac disorder Paternal Grandfather Relation Name Status Comments Father Maternal Grandfather Mother Paternal Grandfather Social History Tobacco Use Types Packs/Day Years Used Date Smoking Tobacco: Never Comments Unknown Sex and Gender Information Value Date Recorded Sex Assigned at Not on file Legal Sex Female 6:59 PM EDT Gender Identity Not on file Sexual Orientation Not on file Last Filed Vital Signs Vital Sign Reading Time Taken Comments Blood Pressure - - Pulse - - Temperature - - Respiratory Rate - - Oxygen Saturation - - Inhaled Oxygen Concentration - - Weight 95.6 kg (210 lb 12.2 oz) 12/29/2014 3:33 PM EDT Height 154.9 cm (5' 1 ) 12/29/2014 3:33 PM EDT Body Mass Index 39.82 12/29/2014 3:33 PM EDT Plan of Treatment Not on file
[2024-09-11 13:35] VITALS: BP 152/51; PULSE 68; RESP 18; O2SAT 97; BMI 50.0
== END 2024-09-11 23:59 | disposition home or self-care (01) ==
PROVIDERS: PCP Internal Medicine; Visit Provider Nurse Practitioner Family
DX: M25.512 Pain in left shoulder (principal); M54.6 Pain in thoracic spine; M25.552 Pain in left hip; M46.1 Sacroiliitis, not elsewhere classified; M79.18 Myalgia, other site; Z79.899 Other long term (current) drug therapy; Z79.1 Long term (current) use of non-steroidal anti-inflammatories (NSAID)
CPT/HCPCS: 73030; 99202; G0463

== ENCOUNTER 2024-12-04 12:00 | Outpatient (CLI) | payer MEDICARE, SELFPAY ==
--- OUTSIDE RECORDS SUMMARY | 2023-07-23 04:00 | XMS_ITS ---
Author Organization [facility] Address [address] [address] Care Team Providers Care Business Management Professor Name Role Phone Cathi Malin Unavailable [phone] Yoon Butler [phone] REASON FOR VISIT 4wk f/u swelling Encounters Encounter Location Date Provider Diagnosis [facility] [address] [place] [address] 07/23/2023 Yoon Butler Plan Of Treatment No Information Progress Notes * NOY COOK FDOB: (69 yo F)Acc No.[id number]:07/23/2023 Progress Notes Patient: NOY KO Provider: ANANT Cornell :1955 A ge:67 Y S ex:Female Date:07/23/2023 Address:[address] [place] [address], [id number] Subjective: * Chief Complaints: * 1 . 4wk f/u swelling. * Medical History: Objective: * Vitals: Assessment: Plan: * Treatment: * Billing Information: * Visit Code: * Procedure Codes: * Electronic signature of Deirdre Butler APRN on 12/05/2024 at 10:55 AM EDT Sign off status: Pending * Provider: ANANT Cornell Date: 0 07/23/2023 Generated for Yvettei maeve/Corazon/eTransmitting on: 0 12/05/2024 10:55 AM EDT
--- OUTSIDE RECORDS SUMMARY | 2023-08-08 06:30 | XMS_ITS ---
Author Organization [employer] Address [address] [facility] [place] [address] Care Team Providers Care Piece Work Checker Name Role Phone SUSIE, BETSY Unavailable [phone] BETSY RICHARDS Unavailable Unavailable Florian Holguin Unavailable [phone] Allergies Allergen (clinical drug ingredient) Drug/Non Drug Allergy documented on EMR Reaction Allergy Type Onset Date Status morphine Morphine Unknown Drug Allergy Active sulfacetamide Sulfacetamide Unknown Drug Allergy Active REASON FOR VISIT follow-up hospitalization [facility]. Initial consult/echo/d/c summary in chart, unable to obtain d/c summary Encounters Encounter Location Date Provider Diagnosis [facility] [address] [place] [address] 08/08/2023 Florian Holguin Acute bronchitis, unspecified J20.9 [...] NOY COOK FDOB: [birth year] (69 yo F)Acc No.[id number]:08/08/2023 Progress Notes Patient: NOY KO Provider: Shawn Holguin DO :1955 A ge:67 Y S ex:Female Date:08/08/2023 Address:[address] [place] [id number] Subjective: * Chief Complaints: * 1 . follow-up hospitalization [facility]. Initial consult/echo/d/c summary in chart. 2. Unable to obtain d/c summary. * HPI: A sthma Control Test: Mrs. Cook is a 67 y/o F with a past medical history significant for congestive heart failure, ??COPD, hypertension, hyperlipidemia, diabetes, CVA who presents to [facility] on 05/01 for the evaluation of worsening shortness of breath and wheezing. She initially presented to [facility] 1 day prior for similar symptoms [...] Electronic signature of Florian Holguin DO on 12/05/2024 at 10:56 AM EDT Sign off status: Pending * Provider: Shawn Holguin DO Date: 0 08/08/2023 Generated for Gordon mcfarlane/Corazon/Saryitting on: 0 12/05/2024 10:56 AM EDT History and Physical Notes * HPI (History of Present Illness) Category Sub-Category Detail Notes Category Not es Asthma Control Test Mrs. Cook is a 67 y/o F with a past medical history significant for congestive heart failure, ??COPD, hypertension, hyperlipidemia, diabetes, CVA who presents to [facility] on 05/01 for the evaluation of worsening shortness of breath and wheezing. She initially presented to [facility] 1 day prior for similar symptoms [...] normal gait and station PSYCH: alert, oriented, learning center coordinator perative with exam, appropriate affect, intact judgement and insight ORAL CAVITY: mucosa moist, tongue in midline
[2024-12-04 21:27] LABS: Hemoglobin A1C 9.1 % (4.0-6.0)
--- OUTSIDE RECORDS SUMMARY | 2024-12-05 10:56 | XMS_ITS | Patient Health Record ---
Author Organization Vladislav Brady MD Address [address] [place] [address] Care Team Providers Care Avionics Systems Repairer Name Role Phone Vladislav Brady Primary Care Provider Vladislav Brady MD Unavailable [phone] Allergies Allergen (clinical drug ingredient) Drug/Non Drug Allergy documented on EMR Reaction Allergy Type Onset Date Status Iodine rash, nausea Drug Allergy Acti ve morphine Morphine Sulfate anaphylaxis Drug Allergy Active Sulfa rash, nausea Drug Allergy Acti ve Reason For Referral No Information Medications Medication SIG (Take, Route, Frequency, Duration) Notes Start Date End Date Status Benicar 20 MG 1 tablet Orally Once a day; Duration: 30 day(s) Active Potassium Gluconate OTC Active Vitamin D OTC Active Zegerid OTC OTC Active Amoxicillin 500 MG 1 tablet Orally ever y 12 hrs; Duration: 10 day(s) 04/21/2011 Active Onglyza 5 MG 1 tablet Orally Once a day; Duration: 30 day(s) Active Citalopram Hydrobromide 40 MG 1 tablet Orally Once a day; Duration: 90 days 10/11/2010 Active tiZANidine HCl 2 MG 3 tablets Orally at hs 010 Active Problems Problem Type SNOMED Code ICD Code Onset Dates Problem Status W/U Status Risk Notes Problem Diabetes mellitus type 2 (disorder) (44068101) DM II (250.00) Active confirmed Low Problem Obstructive sleep apnea syndrome (disorder) (10080777) Obstructive sleep apnea (adult) (pediatric) (327.23) Active confirmed Problem Edema (29622958) Edema (782.3) Active confirmed Problem Hyperlipidemia (57245403) Hyperlipidemia (272.4) Active confirmed Problem Hypertension (10457703) Hypertension (401.9) Active confirmed Problem Diabetes mellitus type 2 (disorder) (55136002) DM II (250.00) Active confirmed Problem Fatigue (38502715) Fatigue (780.79) Active confirmed Problem Headache (73997214) Headache (784.0) Active confirmed Plan Of Treatment Pending Test Test Name Order Date glucose, blood by finger stick 1 Comprehensive Metabolic Panel w/EGFR Insurance Providers Payer Name Payer Address Payer Phone Subscriber Number Group Number Insured Name Patient Relationship to Insured Coverage Start Date Coverage End Date [employer] PPO [address] [address] [place] [address] [id number] Elizabeth Montes Self - patient is the insured Medications Administered Medication Instructions Date of Administration Dosage Notes Ceftriaxone 11/28/2010 1 g Medical (General) History Medical History History ICD Code childbirth x 3 eclampsia, last hypertension panic attacks diabetes umbilical hernia kidney stone Surgical History Surgery Date(Month/Year) WILBERT BARROW, Dr. Guzman, [facility] 1995 wisdom teeth removed at age 13 tubal ligation, Dr. Brian Lr, [facility] 1977 Tonsillectomy as child double hernia repair, Dr. Hebert [facility] 2005
--- OUTSIDE RECORDS SUMMARY | 2024-12-05 10:56 | XMS_ITS | Encounter Summary ---
Author Organization [facility] Address [address] [place] [address] Care Team Providers Care Search Analyst Name Role Phone Yenifer Butler Primary Care Provider Reason for Visit * Reason Comments Med Refill Encounter Details Date Type Department Care Team (Late st Contact Info) Description 11/12/2021 Refill [facility] [address] [facility] [address] [place] [address] Eladia Perdomo PA-C [address] [facility] [address] [place] [address] Med Refill Social History Tobacco Use Types Packs/Day Years Used Date Smoking Tobacco: Never Smokeless Tobacco: Never Alcohol Use Standard Drinks/Week Comments Not Currently 0 (1 standard drink = 0.6 oz pur e alcohol) rare Comments No Sex and Gender Information Value Date Recorded Sex Assigned at Not on file Legal Sex Female 10:12 AM EDT Gender Identity Not on file Sexual Orientation Not on file documented as of this encounter Plan of Treatment Not on file documented as of this encounter Visit Diagnoses Not on filedocumented in this encounter Care Teams Search Analyst Relationship Specialty Start Date End Date Yenifer Butler PA [address] [place] [address] PCP - General Physician Power Chisel Operator 11/27/23 documented as of this encounter
--- OUTSIDE RECORDS SUMMARY | 2024-12-05 10:56 | XMS_ITS | Clinical Summary ---
Author Organization [facility] Address [address] [place] [address] Care Team Providers Care Hay Chopper Name Role Phone Yenifer Butler Primary Care Provider [phone] Allergies Active Allergy Reactions Criticality Noted Date Comments Betamethasone Itching Low 02/11/2016 Atorvastatin Nausea Only Low 08/29/2016 Morphine And Codeine Anaphylaxis High 02/11/2016 Pravastatin Nausea Only Low 08/29/2016 Sulfa Antibiotics Itching,Rash Medium 02/11/2016 Medications citalopram (CeleXA) 20 MG tablet Take 1 tablet by mouth Daily. Active aspirin 81 MG tablet Take 1 tablet by mouth Daily. Active cholecalciferol (VITAMIN D3) 1000 UNITS tablet Take 2 tablets by mouth Every Night. Active tiZANidine (ZANAFLEX) 4 MG tablet Take 1 tablet by mouth At Night As Needed for Muscle Spasms. Can take every 8 hours Active acetaminophen (TYLENOL) 325 MG tablet Take 2 tablets by mouth Every 6 (Six) Hours As Needed for Mild Pain. Active BD INSULIN SYRINGE ULTRAFINE 31G X 15/64 0.3 ML misc USE WITH INSULIN 3-4 TIMES DAILY 100 each 5 8 Active potassium chloride ER (K-TAB) 20 MEQ tablet controlled-relea se ER tablet Take 1 tablet by mouth Daily. 90 tablet 3 1 Active Nystatin powder 1 application 3 (Three) Times a Day As Needed (SKIN FOLDS). Active triamterene-hydr ochlorothiazide (MAXZIDE-25) 37.5-25 MG per tablet Take 1 tablet by mouth Daily. Active rosuvastatin (CRESTOR) 5 MG tabletIndication s:Dyslipidemia,E ssential hypertension Take 1 tablet by mouth Daily. 90 tablet 3 2 Active Insulin Degludec (Tresiba) 100 UNIT/ML solution injection Inject 55 Units under the skin into the appropriate area as directed every night at bedtime. Active Insulin Lispro (humaLOG) 100 UNIT/ML injection Inject 60 Units under the skin into the appropriate area as directed 3 (Three) Times a Day Before Meals. Active carvedilol (COREG) 12.5 MG tablet Take 1 tablet by mouth 2 (Two) Times a Day. 180 tablet 1 2 Active BD Pen Needle Micro U/F 32G X 6 MM misc 3 Active Continuous Blood Gluc Sensor (FreeStyle Teresa 2 Sensor) mis APPLY 1 SENSOR EVERY 14 DAYS 3 Active clobetasol (OLUX) 0.05 % topical foam APPLY TOPICALLY TWICE DAILY FOR 14 DAYS 3 Active Lasix 40 MG tablet Every 12 (Twelve) Hours. 4 Active Jardiance 25 MG tablet tablet Take 1 tablet by mouth Daily. 4 Active losartan (COZAAR) 100 MG tablet Take 1 tablet by mouth Daily. 4 Active Active Problems Problem Noted Date Diagnosed Date Acute on chronic heart failu re with preserved ejection fraction (HFpEF) 11/28/2023 Hypokalemia 10/18/2020 Abdominal pain 10/14/2020 S/P right colectomy, lap assisted. 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 July 2014: Acute ischemic infarct in the right thalamus. a. Echocardiogram, 08/02/2014: Apical kinesis, no evidence of intracardiac or intrapulmonary shunt, severely reduced left ventricular systolic function. b. Echocardiogram, 03/13/2015: Ejection fraction 55% to 60%, atrial level shunt is not suggested by Color Doppler. c. MADELYN, 04/05/2015, EF 55% to 60%. No intracardiac mass is noted. Left atrium 4.5 cm. No thrombus in the left atrium or left atrial appendage. No evidence of PFO or ASD. No significant valvular abnormalities or vegetation seen. d. Bilateral carotid duplex with no evidence of hemodynamically significant stenosis in WENDY or left ICA. e. Implantation of Hosted Systems reveal link loop recorder, 04/05/[address] Paris. CAD (coronary artery disease) 02/11/2016 Overview (01/13/2019): 1. Left heart catheterization, July 2014: Distal LAD disease, medical management. 2. [facility] 01-06-19: Normal left ventriculogram. Normal iFR associated with 60% mid segment LAD narrowing. Unable to wire and equivocal stenosis in the ostium of the first marginal artery. 3. [facility] 01-13-19: Coronary artery disease, nonobstructive, as defined by angiography and RFR studies of the LAD and circumflex marginal arteries. There is a suspicious narrowing of about 60% in the ostium of the first marginal artery. The RFR across this stenosis is acceptable at 0.96. Hypertension 02/11/2016 Type 2 diabetes mellitus wit h complication, with long-term current use of insulin 02/11/2016 Obstructive sleep apnea 02/11/2016 Overview (02/11/2016): Obstructive sleep apnea, C-PAP compliant Dyslipidemia 02/11/2016 Depression 02/11/2016 Resolved Problems Problem Noted Date Diagnosed Date Resolved Date NSTEMI (non-ST elevated myoc ardial infarction) 02/11/2016 01/13/2019 Overview (02/11/2016): type II, July 2014. GERD (gastroesophageal reflux disease) 02/11/2016 01/07/2019 Immunizations Immunization Administration Dates Next Due COVID-19 (Alere) 07/29/2020 Family History Medical History Relation Name Comments Colon cancer Father Heart attack Father Hyperlipidemia Father Hypertension Father Diabetes Maternal Grandfather Obesity Maternal Grandfather Diabetes Maternal Grandmother Obesity Maternal Grandmother Arthritis Mother Diabetes Mother Obesity Mother Pancreatic cancer Mother Relation Name Status Comments Father Maternal Grandfather Maternal Grandmother Mother Social History Tobacco Use Types Packs/Day Years Used Date Smoking Tobacco: Never Smokeless Tobacco: Never Tobacco Cessation:Counseling Given: Not Answered Alcohol Use Standard Drinks/Week Comments Not Currently 0 (1 standard drink = 0.6 oz pur e alcohol) rare Comments No Sex and Gender Information Value Date Recorded Sex Assigned at Not on file Legal Sex Female 10:12 AM EDT Gender Identity Not on file Sexual Orientation Not on file Last Filed Vital Signs Vital Sign Reading Time Taken Comments Blood Pressure 180/65 03/04/2024 2:30 PM EST Pulse 65 03/04/2024 2:30 PM EST Temperature 36.8 C (98.2 F) 10/16/2020 8:52 AM EDT Respiratory Rate 18 10/16/2020 8:52 AM EDT Oxygen Saturation 95% 03/04/2024 2:30 PM EST Inhaled Oxygen Concentration - - Weight 113 kg (250 lb) 03/04/2024 2:30 PM EST Height 154.9 cm (5' 1 ) 03/04/2024 2:30 PM EST Body Mass Index 47.24 03/04/2024 2:30 PM EST Plan of Treatment Health Maintenance Due Date Last Done Comments DXA SCAN 1955 Pneumococcal Vaccine 50+ (1 of 2 - PCV) 1972 TDAP/TD VACCINES (1 - Tdap) 1972 MAMMOGRAM 1993 COLOGUARD 1998 COLON CANCER SCREENING 5 YEA R SIGMOIDOSCOPY 1998 COLONOSCOPY 1998 COLORECTAL CANCER SCREENING 1998 CT COLONOGRAPHY 1998 FECAL OCCULT BLOOD TEST 1998 FIT Testing (1 year) 1998 ZOSTER VACCINE (1 of 2) 11/17/2003 ANNUAL WELLNESS VISIT 07/25/2016 HEPATITIS C SCREENING 07/25/2016 DIABETIC EYE EXAM 12/27/2017 12/27/2016 URINE MICROALBUMIN-CREATININ E RATIO (uACR) 02/26/2018 02/26/2017 DIABETIC FOOT EXAM 06/05/2018 06/05/2017, 0 06/05/2017, 06/05/2017, Additional history exists HEMOGLOBIN A1C 04/14/2021 10/12/2020, 10/0 09/2018, 02/26/2017, Additional history exists COVID-19 Vaccine (2 - 2024-2 6 season) 2024 07/29/2020 INFLUENZA VACCINE 12/31/2024 Medical Devices Implanted Type Area Professor Of Criminal Justice Device Identifier Shelf Expiration Date Model / Serial / Lot Medtronic Linq Cardiac Loop Recoder-2015 Implanted: by Claudia Paris MD (Quantity not on file) Implant [employer] [id number] / [id number] S / Description:1.5T/3T 2500 Gauss/cm 200 T/m/s or less gradient slew rate Info from OP report in EPIC Reload Stplr Lnr Cut Prox 75mm Jm Tcr75 - [id number] Implanted:Qty : 2 on 10/14/2020 by Rashid Syed MD at [facility] Implant N/A: Sigmoid Colon [employer] DIV [employer] J AND J 05/02/2025 [id number] / / [id number] Stplr Lnr Cut Prox 75mm Jm Tlc75 - [id number] Implanted:Qty : 1 on 10/14/2020 by Rashid Syed MD at [facility] Implant N/A: Sigmoid Colon [employer] OF J AND J 06/30/2025 TLC75 / / [id number] Stplr Lnr Cut 60mm Grn Ta60 Tx60g - [id number] Implanted:Qty : 1 on 10/14/2020 by Rashid Syed MD at [facility] Implant N/A: Sigmoid Colon [employer] J AND J 05/30/2025 [id number] / / [id number] Clipapplr M/ Endo Ligaclip 13in Lg - [id number] Implanted:Qty : 1 on 10/14/2020 by Rashid Syed MD at [facility] Implant N/A: Sigmoid Colon [employer] J AND J MCL20 / / NA Reload [place] Endopath Gst 45mm Wht - [id number] Implanted:Qty : 1 on 10/14/2020 by Rashid Syed MD at [facility] Implant N/A: Sigmoid Colon [employer] DIV [employer] J AND J 07/01/2023 [id number] / / [id number] Reload [place] Endopath Gst 45mm Wht - [id number] Implanted:Qty : 1 on 10/14/2020 by Rashid Syed MD at [facility] Implant N/A: Sigmoid Colon [employer] DIV [employer] J AND J 05/31/2023 [id number] / / [id number] Procedures Procedure Name Priority Date/Time Associated Diagnosis Comments HEMOGLOBIN A1C Routine 10/12/2020 3:09 PM EDT MICROALBUMIN / CREATININE URINE RATIO Routine 02/26/2017 1:02 PM EST Type 2 diabetes mellitus without complication, unspecified custodial insulin use status ([facility]) from Last 3 Months or Most Recently Relevant to Health Maintenance Results * (ABNORMAL) Hemoglobin A1c (10/12/2020 3:09 PM EDT) Hemoglobin A1C 8.40(H) 4.80 - 5.60 % 10/12/2020 4:43 PM EDT [facility] Blood Venipuncture / Unknown 10/12/2020 3:09 PM EDT 10/12/2020 3:34 PM EDT Narrative [facility] - 10/12/2020 4:43 PM EDT Hemoglobin A1C Ranges: Increased Risk for Diabetes 5.7% to 6.4% Diabetes >= 6.5% Diabetic Goal < 7.0% us Rashid Syed MD LAB BLOOD ORDERABLES Final Resu lt [facility]
[address] [place] [address], * Microalbumin / Creatinine Urine Ratio - Urine, Clean Catch (02/26/2017 1:02 PM EST) Creatinine, Urine 120.0 Not Estab. mg/dL 02/27/2017 10:12 AM EST [facility] Microalbumin, Urine <3.0 Not Estab. ug/mL 02/27/2017 10:12 AM EST [facility] Microalbumin/Cr eatinine Ratio <2.5 0.0 - 30.0 mg/g creat 02/27/2017 10:12 AM EST [facility] Urine Urine specimen collection, clean catch / Unknown Collection / Unknown 02/26/2017 1:02 PM EST 02/26/2017 1:02 PM EST Narrative [facility] - 02/27/2017 10:12 AM EST Performed at: 01 - [facility] [address] [id number] Medical Secretary: Manuel Faustin PhD, Phone: [phone] Jane Jaffe PA-C URINE ORDERABLES Final Res ult [facility] [address] [place] [id number], from Last 3 Months or Most Recently Relevant to Health Maintenance Insurance [facility] MEDICARE ADVANTAGE PPO Advance Directives * CPR (Attempt to Resuscitate) (Latest Code Status on File) Date Activated Date Inactivated Comments 10/14/2020 8:49 PM 10/16/2020 7:38 PM Question Answer Comments Code Status (Patient has no pulse and is not breathing): CPR (Attempt to Resuscitate) Medical Interventions (Patie nt has pulse or is breathing): Full Level Of Support Discussed With: Patient * CPR (Attempt to Resuscitate) Date Activated Date Inactivated Comments 01/13/2019 11:05 AM 01/13/2019 10:47 PM Question Answer Comments Code Status (Patient has no pulse and is not breathing): CPR (Attempt to Resuscitate) Medical Interventions (Patie nt has pulse or is breathing): Full Level Of Support Discussed With: Patient * CPR (Attempt to Resuscitate) Date Activated Date Inactivated Comments 01/06/2019 1:19 PM 01/06/2019 8:41 PM Question Answer Comments Code Status (Patient has no pulse and is not breathing): CPR (Attempt to Resuscitate) Medical Interventions (Patie nt has pulse or is breathing): Full Level Of Support Discussed With: Patient Care Teams Hay Chopper Relationship Specialty Start Date End Date Yenifer Butler PA [address] [place] [address] PCP - General Physician Creel Operator 11/27/23
--- OUTSIDE RECORDS SUMMARY | 2024-12-05 10:56 | XMS_ITS | Clinical Summary ---
Author Organization Healthcare Address [address] [place] [address] Care Team Providers Care In Shop Service Technician Name Role Phone Unavailable Primary Care Provider [...]
--- OUTSIDE RECORDS SUMMARY | 2024-12-05 10:56 | XMS_ITS | Patient Health Record ---
Author Organization [facility] Address [address] [place] [address] Care Team Providers Care Back End Architect Name Role Phone Cathi Malin Unavailable [phone] Allergies Allergen (clinical drug ingredient) Drug/Non Drug [...] MG 1-2 tablet Orally On ce a day; Duration: 90 days 05/23/2023 Active Citalopram Hydrobromide 30 MG 1 capsule Orally Once a day Active Rosuvastatin Calcium 5 MG 1 tablet Orally Once a day Active NexIUM Active Aspirin Adult Low Dose 81 MG 1 tablet Orally Once a day A ctive Magnesium 400 MG as directed Orally Active Lasix 40 MG 1 tablet Orally twic a day; Duration: 30 days 06/25/2023 Active Social History Alcohol [...] Problem Status W/U Status Risk Notes Problem Hyperglycemia due to type 2 diabetes mellitus (718114751431540) Type 2 diabetes mellitus with hyperglycemia (E11.65) Active confirmed Problem Type 2 diabetes mellitus with other specified complication (E11.69) Active confirmed Problem Vitamin D deficiency (20612596) Vitamin D deficiency, unspecified (E55.9) Active confirmed Problem Mixed hyperlipidemia (552085322) Mixed hyperlipidemia (E78.2) Active confirmed Problem Hypomagnesemia (801470638) Hypomagnesemia (E83.42) Active confirmed Problem Hypokalemia (01604048) Hypokalemia (E87.6) Active confirmed Problem Long-term current use of insulin (206068800) 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 mill operator (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) use of insulin (Z79.4) Active confirmed Problem Essential hypertension (06514987) Essential hypertension (I10) Active confirmed Problem COPD - Chronic obstructive pulmonary disease (89344172) Chronic obstructive pulmonary disease, unspecified COPD type (J44.9) Active confirmed Problem Acute exacerbation of chronic obstructive airways disease (781057399) COPD exacerbation (J44.1) Active confirmed Problem Gastroesophageal reflux disease (793026737) GERD without esophagitis (K21.9) Active confirmed Problem Heart failure (90842235) Chronic congestive heart failure, unspecified heart failure type (I50.9) Active confirmed Plan Of Treatment Pending Test Test Name Order Date Comp. Metabolic Panel (14) 05/23/2023 COMPREHENSIVE METABOLIC PANEL (28659) Insurance Providers Payer Name Payer Address Payer Phone Subscriber Number Group Number Insured Name Patient Relationship to Insured Coverage Start Date Coverage End Date SYLVIE/CATHY [facility] ADVANTAGE [address] [place] [id number] NOY COOK Self - patient is [...]
--- OUTSIDE RECORDS SUMMARY | 2024-12-05 10:56 | XMS_ITS | Patient Health Record ---
Author Organization [facility] Address [address] [place] [address] Care Team Providers Care Biodiesel Plant Operations Engineer Name Role Phone BETSY RICHARDS Unavailable [phone] SUSIEGARY DAMONNDRE Unavailable Unavailable Allergies Allergen (clinical drug ingredient) Drug/Non Drug Allergy documented on EMR Reaction Allergy Type Onset Date Status morphine Morphine Unknown Drug Allergy Active sulfacetamide Sulfacetamide Unknown Drug Allergy Active Reason For Referral No Information Problems Problem Type SNOMED Code ICD Code Onset Dates Problem Status W/U Status Risk Notes Problem Diastolic heart failure (958266439) CHF, diastolic (I50.30) Active confirmed Problem Gastroesophageal reflux disease (162172557) GERD without esophagitis (K21.9) Active confirmed Problem 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) Active confirmed Problem Obstructive sleep apnea syndrome (10247162) MAYELIN (obstructive sleep apnea) (G47.33) Active confirmed Problem Dysphagia (35020166) Dysphagia, unspecified type (R13.10) Active confirmed Plan Of Treatment Pending Test Test Name Order Date PFTS with DLCO 05/30/2023 Insurance Providers Payer Name Payer Address Payer Phone Subscriber Number Group Number Insured Name Patient Relationship to Insured Coverage Start Date Coverage End Date [facility] [address] [place] [address] [phone] [id number] NOY COOK Self - patient is the insured Medical (General) History Medical History History ICD Code DIABETES TYPE 2 HEART DISEAS HYPERTENSION COPD STROKE ANXIETY ESSENTIAL TREMOIS DEPRESSION WATER RETENSION SINUSITIS GERD SLEEP APNEA HIGH CHOLESTEROL THALAMIC PAIN SYNDROME MOVEMENT DISORDER Surgical History Surgery Date(Month/Year) TONSILLECTOMY WISDOM TEETH TUBAL LIGATION HEART CATH
--- OUTSIDE RECORDS SUMMARY | 2024-12-05 10:56 | XMS_ITS | Encounter Summary ---
Author Organization [facility] Address [address] [place] [address] Care Team Providers Care Early Childhood Associate Name Role Phone Yenifer Butler Primary Care Provider [phone] Reason for Visit * Reason Onset Date Comments Med Refill 08/03/2020 Encounter Details Date Type Department Care Team (Late st Contact Info) Description 08/03/2020 Refill [facility] C[facility] [address] [place] [phone] Eladia Perdomo PA-C [address] [facility] [address] [place] [address] Med Refill Social History Tobacco [...] documented as of this encounter Visit Diagnoses Diagnosis Dyslipidemia Other and unspecified hyperlipidemia Essential hypertension Unspecified essential hypertension documented in this encounter Additional Health Concerns Infection Onset Date Last Indicated Resolved Time COVID Screen (preop/placement) 10/12/2020 10/12/2020 10/13/2020 4:01 PM EDT documented as of this encounter Care Teams Early Childhood Associate Relationship Specialty Start Date End Date Yenifer Butler PA [address] [place] [address] PCP - General Physician Supervisor Lump Room 11/27/23 documented as of this encounter
--- OUTSIDE RECORDS SUMMARY | 2024-12-05 10:56 | XMS_ITS | Encounter Summary ---
Author Organization [facility] Address [address] [place] [address] Care Team Providers Care Pari Mutuel Clerk Name Role Phone Yenifer Butler Primary Care Provider [phone] Reason for Visit * Reason Onset Date Comments Med Refill 04/20/2020 Encounter Details Date Type Department Care Team (Late st Contact Info) Description 04/20/2020 Refill [facility] [address] [place] [phone] Eladia Perdomo PA-C [address] [facility] [address] [place] [address] Med Refill Social History Tobacco [...] Diagnoses Not on filedocumented in this encounter Additional Health Concerns Infection Onset Date Last Indicated Resolved Time COVID Screen (preop/placement) 10/12/2020 10/12/2020 10/13/2020 4:01 PM EDT documented as of this encounter Care Teams Pari Mutuel Clerk Relationship Specialty Start Date End Date Yenifer Butler PA [address] [place] [address] PCP - General Physician Territory Service Representative 11/27/23 documented as of this encounter
== END 2024-12-04 23:59 ==
LOC: LAB.DROPOF 12-05 10:54
PROVIDERS: PCP Internal Medicine; Visit Provider Internal Medicine
DX: E11.9 Type 2 diabetes mellitus without complications (principal); Z79.4 Long term (current) use of insulin
CPT/HCPCS: 83036

== ENCOUNTER 2025-01-01 09:47 | Outpatient (CLI) | payer MEDICARE, SELFPAY ==
--- OUTSIDE RECORDS SUMMARY | 2023-07-23 04:00 | XMS_ITS ---
Author Organization [facility] Address [address] [place] [address] Care Team Providers Care Broadband Technician Name Role Phone Cathi Malin Unavailable [phone] Yoon Butler [phone] REASON FOR VISIT 4wk f/u swelling Encounters Encounter Location Date Provider Diagnosis [facility] [address] [place] [address] 07/23/2023 Yoon Butler Plan Of Treatment No Information Progress Notes * NOY COOK FDOB: (69 yo F)Acc No.[id number]:07/23/2023 Progress Notes Patient: NOY KO Provider: ANANT Cornell :1955 A ge:67 Y S ex:Female Date:07/23/2023 Address:[address] [place] [address], [id number] Subjective: * Chief Complaints: * 1 . 4wk f/u swelling. * Medical History: Objective: * Vitals: Assessment: Plan: * Treatment: * Billing Information: * Visit Code: * Procedure Codes: * Electronic signature of Deirdre Butler APRN on 01/01/2025 at 09:51 AM EDT Sign off status: Pending * Provider: ANANT Cornell Date: 0 07/23/2023 Generated for Yvettei maeve/Corazon/eTransmitting on: 1 09:51 AM EDT
--- OUTSIDE RECORDS SUMMARY | 2023-08-08 06:30 | XMS_ITS ---
Author Organization [employer] Address [address] [facility] [place] [address] Care Team Providers Care Rail Transportation Operator Name Role Phone SUSIE, BETSY Unavailable [phone] BETSY RICHARDS Unavailable Unavailable Florian Holguin Unavailable [phone] Allergies Allergen (clinical drug ingredient) Drug/Non Drug Allergy documented on EMR Reaction Allergy Type Onset Date Status morphine Morphine Unknown Drug Allergy Active sulfacetamide Sulfacetamide Unknown Drug Allergy Active REASON FOR VISIT follow-up hospitalization [facility]. Initial consult/echo/d/c summary in chart, unable to obtain d/c summary Encounters Encounter Location Date Provider Diagnosis Ad Infuse [facility] [address] [place] [address] 08/08/2023 Florian Holguin Acute bronchitis, unspecified J20.9 [...] NOY COOK FDOB: [birth year] (69 yo F)Acc No.[id number]:08/08/2023 Progress Notes Patient: NOY KO Provider: Shawn Holguin DO :1955 A ge:67 Y S ex:Female Date:08/08/2023 Address:[address] [place] [id number] Subjective: * Chief Complaints: * 1 . follow-up hospitalization [facility]. Initial consult/echo/d/c summary in chart. 2. Unable to obtain d/c summary. * HPI: A sthma Control Test: Mrs. Cook is a 67 y/o F with a past medical history significant for congestive heart failure, ??COPD, hypertension, hyperlipidemia, diabetes, CVA who presents to [facility] on 05/01 for the evaluation of worsening shortness of breath and wheezing. She initially presented to [facility] 1 day prior for similar symptoms [...] Electronic signature of Florian Holguin DO on 01/01/2025 at 09:51 AM EDT Sign off status: Pending * Provider: Shawn Holguin DO Date: 0 08/08/2023 Generated for Gordon mcfarlane/Corazon/Saryitting on: 1 09:51 AM EDT History and Physical Notes * HPI (History of Present Illness) Category Sub-Category Detail Notes Category Not es Asthma Control Test Mrs. Cook is a 67 y/o F with a past medical history significant for congestive heart failure, ??COPD, hypertension, hyperlipidemia, diabetes, CVA who presents to [facility] on 05/01 for the evaluation of worsening shortness of breath and wheezing. She initially presented to [facility] 1 day prior for similar symptoms [...] normal gait and station PSYCH: alert, oriented, brand coordinator perative with exam, appropriate affect, intact judgement and insight ORAL CAVITY: mucosa moist, tongue in midline
--- OUTSIDE RECORDS SUMMARY | 2025-01-01 09:51 | XMS_ITS | Encounter Summary ---
Author Organization [facility] Address [address] [place] [address] Care Team Providers Care Oral Communication Instructor Name Role Phone Yenifer Butler Primary Care Provider Reason for Visit * Reason Comments Med Refill Encounter Details Date Type Department Care Team (Late st Contact Info) Description 11/12/2021 Refill [facility] C[facility]IOLOGY [address] [facility] [address] [place] [address] Eladia Perdomo PA-C [address] [facility] [address] [place] [address] Med Refill Social History Tobacco [...] on filedocumented in this encounter Care Teams Oral Communication Instructor Relationship Specialty Start Date End Date Yenifer Butler PA [address] [place] [address] PCP - General Physician Tile Picker 11/27/23 documented as of this encounter
--- OUTSIDE RECORDS SUMMARY | 2025-01-01 09:51 | XMS_ITS | Clinical Summary ---
Author Organization [facility] Address [address] [place] [address] Care Team Providers Care Supervisor Ore Dressing Name Role Phone Unavailable Primary Care Provider [...]
--- OUTSIDE RECORDS SUMMARY | 2025-01-01 09:51 | XMS_ITS | Clinical Summary ---
Author Organization [facility] Address [address] [place] [address] Care Team Providers Care Body Fitter Name Role Phone Yenifer Butler Primary Care Provider [phone] Allergies Active Allergy Reactions Criticality Noted Date [...] WENDY or left ICA. e. Implantation of [employer] reveal link loop recorder, 04/05/[address] Paris. CAD (coronary artery disease) 02/11/2016 Overview (01/13/2019): 1. Left heart catheterization, July 2014: Distal LAD disease, medical management. 2. [facility] 01-06-19: Normal left ventriculogram. Normal iFR associated with 60% mid segment LAD narrowing. Unable to wire and equivocal stenosis in the ostium of the first marginal artery. 3. [facility] 01-13-19: Coronary artery disease, nonobstructive, as defined [...] Immunizations Immunization Administration Dates Next Due COVID-19 ([employer]) 07/29/2020 Family History Medical History Relation Name [...] 10/12/2020, 10/0 09/2018, 02/26/2017, Additional history exists INFLUENZA VACCINE 10/31/2024 COVID-19 Vaccine (2024-05 6 season) 2024 07/29/2020 Medical Devices Implanted Type Area [facility] Director Device Identifier Shelf Expiration Date Model / Serial / Lot Medtronic Linq Cardiac Loop Recoder-2015 Implanted: by Claudia Paris MD (Quantity not on file) Implant MED[employer] [id number] / [id number] S / Description:1.5T/3T 2500 Gauss/cm 200 T/m/s or less gradient slew rate Info from OP report in EPIC Reload Stplr Lnr Cut Prox 75mm Jm Tcr75 - [id number] Implanted:Qty : 2 on 10/14/2020 by Rashid Syed MD at [facility] Implant N/A: Sigmoid Colon [employer] DIV OF J AND J 05/02/2025 TCR75 / / [id number] Stplr Lnr Cut Prox 75mm Jm Tlc75 - [id number] Implanted:Qty : 1 on 10/14/2020 by Rashid Syed MD at [facility] Implant N/A: Sigmoid Colon [employer] DIV OF J AND J 06/30/2025 TLC75 / / [id number] Stplr Lnr Cut 60mm Grn Ta60 Tx60g - [id number] Implanted:Qty : 1 on 10/14/2020 by Rashid Syed MD at [facility] Implant N/A: Sigmoid Colon [employer] DIV OF J AND J 05/30/2025 [id number] / / [id number] Clipapplr M/ Endo Ligaclip 13in Lg - [id number] Implanted:Qty : 1 on 10/14/2020 by Rashid Syed MD at [facility] Implant N/A: Sigmoid Colon [employer] DIV OF J AND J MCL20 / / NA Reload [place] Endopath Gst 45mm Wht - [id number] Implanted:Qty : 1 on 10/14/2020 by Rashid Syed MD at [facility] Implant N/A: Sigmoid Colon [employer] DIV OF J AND J 07/01/2023 [id number] / / [id number] Reload [place]rove Endopath Gst 45mm Wht - [id number] Implanted:Qty : 1 on 10/14/2020 by Rashid Syed MD at [facility] Implant N/A: Sigmoid Colon [employer] DIV OF J AND J 05/31/2023 [id number] / / [id number] Procedures Procedure Name Priority Date/Time Associated Diagnosis Comments HEMOGLOBIN A1C Routine 10/12/2020 3:09 PM EDT MICROALBUMIN / CREATININE URINE RATIO Routine 02/26/2017 1:02 PM EST Type 2 diabetes mellitus without complication, unspecified research spec insulin use status ([facility]) from Last 3 Months or Most Recently Relevant to Health Maintenance Results * (ABNORMAL) Hemoglobin A1c (10/12/2020 3:09 PM EDT) Hemoglobin A1C 8.40(H) 4.80 - 5.60 % 10/12/2020 4:43 PM EDT [facility] Blood Venipuncture / Unknown 10/12/2020 3:09 PM EDT 10/12/2020 3:34 PM EDT Narrative [facility] - 10/12/2020 4:43 PM EDT Hemoglobin A1C Ranges: Increased Risk for Diabetes 5.7% to 6.4% Diabetes >= 6.5% Diabetic Goal < 7.0% us Rashid Syed MD LAB BLOOD ORDERABLES Final Resu lt [facility]
[address] [place] [address], * Microalbumin / Creatinine Urine Ratio - [...] AM EST Performed at: 01 - [facility] [address] [id number] Reaming Machine Tender: Manuel Faustin PhD, Phone: [phone] Jane Jaffe PA-C URINE ORDERABLES Final Res ult [facility] [address] [place] [id number], from Last 3 Months or Most Recently Relevant to Health Maintenance Insurance [facility] MEDICARE ADVANTAGE PPO Advance Directives * CPR [...] Of Support Discussed With: Patient Care Teams Body Fitter Relationship Specialty Start Date End Date Yenifer Butler PA [address] [place] [address] PCP - General Physician Rn Orthopedic 11/27/23
--- OUTSIDE RECORDS SUMMARY | 2025-01-01 09:51 | XMS_ITS | Encounter Summary ---
Author Organization [facility] Address [address] [place] [address] Care Team Providers Care Principal Biostatistician Name Role Phone Yenifer Butler Primary Care Provider [phone] Reason for Visit * Reason Onset Date Comments Med Refill 04/20/2020 Encounter Details Date Type Department Care Team (Late st Contact Info) Description 04/20/2020 Refill [facility] CARDIOLOGY [address] [place] [id number] Eladia Perdomo PA-C [address] [facility] [address] [place] [address] Med Refill Social History Tobacco [...] documented as of this encounter Care Teams Principal Biostatistician Relationship Specialty Start Date End Date Yenifer Butler PA [address] [place] [address] PCP - General Physician Dicer Operator 11/27/23 documented as of this encounter
--- OUTSIDE RECORDS SUMMARY | 2025-01-01 09:51 | XMS_ITS | Patient Health Record ---
Author Organization [facility] Address [address] [place] [address] Care Team Providers Care Neuropsychiatric Aide Name Role Phone Cathi Malin Unavailable [phone] Allergies Allergen (clinical drug ingredient) Drug/Non Drug [...] Hyperglycemia due to type 2 diabetes mellitus (503852700189583) Type 2 diabetes mellitus with hyperglycemia (E11.65) Active confirmed Problem Type 2 diabetes mellitus with other specified complication (E11.69) Active confirmed Problem Vitamin D deficiency (62583365) Vitamin D deficiency, unspecified (E55.9) Active confirmed Problem Mixed hyperlipidemia (358104098) Mixed hyperlipidemia (E78.2) Active confirmed Problem Hypomagnesemia (421706491) Hypomagnesemia (E83.42) Active confirmed Problem Hypokalemia (87579510) Hypokalemia (E87.6) Active confirmed Problem Long-term current use of insulin (455559479) termite helper (current) use of insulin (Z79.4) Active confirmed Problem Essential hypertension (00861461) Essential hypertension (I10) Active confirmed Problem COPD - Chronic obstructive pulmonary disease (07695528) Chronic obstructive pulmonary disease, unspecified COPD type (J44.9) Active confirmed Problem Acute exacerbation of chronic obstructive airways disease (703837548) COPD exacerbation (J44.1) Active confirmed Problem Gastroesophageal reflux disease (710483705) GERD without esophagitis (K21.9) Active confirmed Problem Heart failure (74095860) Chronic congestive heart failure, unspecified heart failure type (I50.9) Active confirmed Plan Of Treatment Pending Test Test Name Order Date Comp. Metabolic Panel (14) 05/23/2023 COMPREHENSIVE METABOLIC PANEL (41205) Insurance Providers Payer Name Payer Address Payer Phone Subscriber Number Group Number Insured Name Patient Relationship to Insured Coverage Start Date Coverage End Date SYLVIE/CATHY [facility] ADVANT[facility] [address] [place] [id number] NOY COOK Self - patient is [...]
--- OUTSIDE RECORDS SUMMARY | 2025-01-01 09:51 | XMS_ITS | Encounter Summary ---
Author Organization [facility] Address [address] [place] [address] Care Team Providers Care Jewel Hole Finish Opener Name Role Phone Yenifer Butler Primary Care Provider [phone] Reason for Visit * Reason Onset Date Comments Med Refill 08/03/2020 Encounter Details Date Type Department Care Team (Late st Contact Info) Description 08/03/2020 Refill [facility] CARDIOLOGY [address] [place] [phone] Eladia Perdomo PA-C [address] [facility] [address] [place] [address] Med Refill Social History Tobacco [...] documented as of this encounter Care Teams Jewel Hole Finish Opener Relationship Specialty Start Date End Date Yenifer Butler PA [address] [place] [address] PCP - General Physician Affirmative Action Officer 11/27/23 documented as of this encounter
--- OUTSIDE RECORDS SUMMARY | 2025-01-01 09:51 | XMS_ITS | Patient Health Record ---
Author Organization Vladislav Brady MD Address [address] [place] [address] Care Team Providers Care Senior Sql Server Database Developer Name Role Phone Vladislav Brady Primary Care Provider [phone] Vladislav Brady MD Unavailable [phone] Allergies Allergen (clinical drug ingredient) Drug/Non Drug Allergy documented on EMR Reaction Allergy Type Onset Date Status Iodine rash, nausea Drug Allergy Acti ve Morphine Sulfate anaphylaxis Drug Allergy Active Sulfa [...] Notes Problem Diabetes mellitus type 2 (disorder) (28004808) DM II (250.00) Active confirmed Low Problem Obstructive sleep apnea syndrome (disorder) (47642876) Obstructive sleep apnea (adult) (pediatric) (327.23) Active confirmed Problem Edema (64043228) Edema (782.3) Active confirmed Problem Hyperlipidemia (01588422) Hyperlipidemia (272.4) Active confirmed Problem Hypertension (09277774) Hypertension (401.9) Active confirmed Problem Diabetes mellitus type 2 (disorder) (90377086) DM II (250.00) Active confirmed Problem Fatigue (64482854) Fatigue (780.79) Active confirmed Problem Headache (54071592) Headache (784.0) Active confirmed Plan Of Treatment Pending Test Test Name Order Date glucose, blood by finger stick 1 Comprehensive Metabolic Panel w/EGFR Insurance Providers Payer Name Payer Address Payer Phone Subscriber Number Group Number Insured Name Patient Relationship to Insured Coverage Start Date Coverage End Date [employer] PPO [address] [address] [place] [phone] [id number] Elizabeth Montes Self - patient is the insured Medications Administered Medication Instructions Date of Administration Dosage Notes Ceftriaxone 11/28/2010 1 g Medical (General) History Medical History History ICD Code childbirth x 3 eclampsia, last hypertension panic attacks diabetes umbilical hernia kidney stone Surgical History Surgery Date(Month/Year) WILBERT BARROW, Dr. Guzman, [facility] 1995 wisdom teeth removed at age 13 tubal ligation, Dr. Brian Lr, [facility] 1977 Tonsillectomy as child double hernia repair, Dr. Hebert [facility] 2005
--- OUTSIDE RECORDS SUMMARY | 2025-01-01 09:51 | XMS_ITS | Patient Health Record ---
Author Organization [facility] Address [address] [place] [address] Care Team Providers Care Dye House Hand Name Role Phone BETSY RICHARDS Unavailable [phone] SUSIEGARY DAMONNDRE Unavailable Unavailable Allergies Allergen (clinical drug ingredient) Drug/Non Drug Allergy documented on EMR Reaction Allergy Type Onset Date Status morphine Morphine Unknown Drug Allergy Active sulfacetamide Sulfacetamide Unknown Drug Allergy Active Reason For Referral No Information Problems Problem Type SNOMED Code ICD Code Onset Dates Problem Status W/U Status Risk Notes Problem Diastolic heart failure (622955413) CHF, diastolic (I50.30) Active confirmed Problem Gastroesophageal reflux disease (007717468) GERD without esophagitis (K21.9) Active confirmed Problem 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 [place] [address] [place] [address] [id number] NOY COOK Self - patient is the insured Medical (General) History Medical History History ICD Code DIABETES TYPE 2 HEART DISEAS HYPERTENSION COPD STROKE ANXIETY ESSENTIAL TREMOIS DEPRESSION WATER RETENSION SINUSITIS GERD SLEEP APNEA HIGH CHOLESTEROL THALAMIC PAIN SYNDROME MOVEMENT DISORDER Surgical History Surgery Date(Month/Year) TONSILLECTOMY WISDOM TEETH TUBAL LIGATION HEART CATH
--- NOTE | 2025-01-01 10:00 | MM_ITS ---
PROCEDURE INFORMATION: Exam: MG Bilateral Screening 3D Mammography Exam date and time: 01/01/2025 9:59 AM Age: 69 years old Clinical indication: Screening examination TECHNIQUE: Imaging protocol: Bilateral Screening tomosynthesis and 2D mammography including computer-aided detection (CAD) when performed. COMPARISON: 1. MG DMDB DIG MAMM-DX TONY W/CAD 09/27/2016 9:22 AM 2. MG DMSB DIG MAMM-SCREEN TONY W/CAD 09/06/2016 10:00 AM FINDINGS: MAMMOGRAPHY: Breast composition: There are scattered areas of fibroglandular density. Mass: None. Architectural distortion: None. Calcifications: No suspicious calcifications. Asymmetric density: Questionable focal glandular asymmetry measuring 1.8 cm in the deep central retroareolar right breast. Skin thickening: None. Axillary adenopathy: None. Other findings: A loop recorder device projects over the medial posterior aspect of the left breast IMPRESSION: Patient to be recalled for spot compression views of the right breast in the CC and MLO projections, a full 90 degree lateral view, and right breast ultrasound for further evaluation of a right breast focal asymmetry. ASSESSMENT: BI-RADS Category 0: Incomplete- Need Additional Imaging Evaluation.
== END 2025-01-01 23:59 | disposition home or self-care (01) ==
LOC: RAD 09:47
PROVIDERS: PCP Internal Medicine; Visit Provider Internal Medicine
DX: Z12.31 Encounter for screening mammogram for malignant neoplasm of breast (principal); R92.323 Mammographic fibroglandular density, bilateral breasts; N64.89 Other specified disorders of breast; Z95.818 Presence of other cardiac implants and grafts
CPT/HCPCS: 77063; 77067

== ENCOUNTER 2025-02-05 13:49 | Outpatient (CLI) | payer MEDICARE, SELFPAY ==
--- OUTSIDE RECORDS SUMMARY | 2023-08-08 05:30 | XMS_ITS ---
Author Organization [employer] Address [address] [facility] [place] [address] Care Team Providers Care Tray Server Name Role Phone SUSIE, BETSY Unavailable [phone] BETSY RICHARDS Unavailable Unavailable Florian Holguin Unavailable [phone] Allergies Allergen (clinical drug ingredient) Drug/Non Drug Allergy documented on EMR Reaction Allergy Type Onset Date Status morphine Morphine Unknown Drug Allergy Active sulfacetamide Sulfacetamide Unknown Drug Allergy Active REASON FOR VISIT follow-up hospitalization [facility]. Initial consult/echo/d/c summary in chart, unable to obtain d/c summary Encounters Encounter Location Date Provider Diagnosis Agency [facility] [address] [place] [address] 08/08/2023 Florian Holguin Acute bronchitis, unspecified J20.9 ; CHF, diastolic I50.30 ; 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 I63.211 ; GERD without esophagitis K21.9 ; Dysphagia, unspecified type R13.10 and MAYELIN (obstructive sleep apnea) G47.33 Assessments Encounter Date Diagnosis (ICD Code) Assessment Notes Treatment Notes Treatment Clinical Notes Section Notes 08/08/2023 Acute bronchitis, unspecified (ICD-10 - J20.9) M/L 2/2 ASPIRATION AND REFLUX CONTINUE ADVIAR BID INH OBTAIN PFT'S 08/08/2023 CHF, diastolic (ICD-10 - I50.30) 08/08/2023 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 (ICD-10 - I63.211) 08/08/2023 GERD without esophagitis (ICD-10 - K21.9) 05/08/23 ESOPHAGRAM SHOWED SEVERE REFLUX RECOMMEND INCREASING OTC NEXIUM TO BID 08/08/2023 Dysphagia, unspecified type (ICD-10 - R13.10) MIKLD PHARYNGEAL DYSPHAGIA NOTED ON MBS 05/07/23; M/L RESIDUAL EFFECTS FROM 2014 CVA 08/08/2023 MAYELIN (obstructive sleep apnea) (ICD-10 - G47.33) ON BIPAP 17/03; COMPLIANT FOLLOWS WITH PCP Plan Of Treatment Treatment Notes Assessment Notes Acute bronchitis, unspecified M/L 2/ ASPIRATION AND REFLUX CONTINUE ADVIAR BID INH OBTAIN PFT'S GERD without esophagitis 05/08/23 ESOPHAGRAM SHOWED SEVERE REFLUX RECOMMEND INCREASING OTC NEXIUM TO BID Dysphagia, unspecified type MIKLD PHARYN GEAL DYSPHAGIA NOTED ON MBS 05/07/23; M/L RESIDUAL EFFECTS FROM 2014 CVA MAYELIN (obstructive sleep apnea) ON BIPAP 17/03; COMPLIANT FOLLOWS WITH PCP Progress Notes * NOY COOK FDOB: 4 (69 yo F)Acc No.[id number]:08/08/2023 Progress Notes Patient: NOY KO Provider: Shawn Holguin DO :1955 A ge:67 Y S ex:Female Date:08/08/2023 Address:[address] [place] [id number] Subjective: * Chief Complaints: * 1 . follow-up hospitalization [facility]. Initial consult/echo/d/c summary in chart. 2. Unable to obtain d/c summary. * HPI: A sthma Control Test: Mrs. Cook is a 67 y/o F with a past medical history significant for congestive heart failure, ??COPD, hypertension, hyperlipidemia, diabetes, CVA who presents to [place] on 05/01 for the evaluation of worsening shortness of breath and wheezing. She initially presented to [facility] 1 day prior for similar symptoms [...] home CPAP # h/o CVA 2014. * ROS: 1 0 PONTS REVIEW OF SYSTEMS PERFORMED AND APPEARS NEGATIVE OTHER THAN STATED IN HPI. * Medical History: D IABETES TYPE 2, HEART DISEAS, HYPERTENSION, COPD, STROKE, ANXIETY, ESSENTIAL TREMOIS, DEPRESSION, WATER RETENSION, SINUSITIS, GERD, SLEEP APNEA, HIGH CHOLESTEROL, THALAMIC PAIN SYNDROME, MOVEMENT DISORDER. * Surgical History: T ONSILLECTOMY , WISDOM TEETH , TUBAL LIGATION , HEART CATH . * Hospitalization/Major Diagno stic Procedure: D enies Past Hospitalization. * Family History: N on-Contributory. * Medications: N one * Allergies: M orphine: Allergy, Sulfacetamide: Allergy. Objective: * Vitals: * Examination: G eneral Examination: HEAD: n [...] - I63.211 S pecify :BASAL THALAMIC IN 2014 4 . G ERD without esophagitis - [...] ON BIPAP 17/03; COMPLIANT FOLLOWS WITH PCP Care Plan: * Problems: * Billing Information: * Visit Code: * Procedure Codes: * Electronic signature of Florian Holguin DO on 02/05/2025 at 01:56 PM EST Sign off status: Pending * Provider: Shawn Holguin DO Date: 0 08/08/2023 Generated for Gordon mcfarlane/Corazon/Saryitting on: 04/07/2024 01:56 PM EST History and Physical Notes * HPI (History of Present Illness) Category Sub-Category Detail Notes Category Not es Asthma Control Test Mrs. Cook is a 67 y/o F with a past medical history significant for congestive heart failure, ??COPD, hypertension, hyperlipidemia, diabetes, CVA who presents to [facility] on 05/01 for the evaluation of worsening shortness of breath and wheezing. She initially presented to [facility] 1 day prior for similar symptoms [...] normal gait and station PSYCH: alert, oriented, induction coordination power engineer perative with exam, appropriate affect, intact judgement and insight ORAL CAVITY: mucosa moist, tongue in midline
--- NOTE | 2025-02-05 13:30 | MM_ITS ---
PROCEDURE INFORMATION: Exam: US Right Breast, Complete MG Right Diagnostic Breast Tomosynthesis Exam date and time: 02/05/2025 2:19 PM Age: 69 years old Clinical indication: Patient recalled on the basis of a screening mammogram for further evaluation; Right breast; Abnormal findings on imaging; Additional info: Results on imaging TECHNIQUE: Imaging protocol: Complete ultrasound of all four quadrants of the right breast and the retroareolar regions, including ultrasound of the axilla when performed. Right Diagnostic tomosynthesis and 2D mammography including computer-aided detection (CAD) when performed. Unilateral or bilateral exam. COMPARISON: MG MM DIG MAMM DX UNILAT RT CAD 02/05/2025 1:55 PM FINDINGS: MAMMOGRAPHY: Breast composition: There are scattered areas of fibroglandular density. Breast mammogram findings: There is a nodular focal asymmetry in the central aspect of the right breast middle depth which may represent clustered cysts. Further evaluation with ultrasound will be performed. There is no suspicious distortion or calcifications. ULTRASOUND: Breast ultrasound findings: Ultrasound of the right breast is performed and demonstrates multiple clustered cysts at 7 o'clock, 2 cm from the nipple measuring up to 0.5 cm. There is no suspicious solid mass, shadowing, or distortion. There are clustered cysts in the right breast 9 o'clock axis, 6 cm from the nipple that measure a total of 1.1 x 1.0 x 0.8 cm. No shadowing or distortion. No axillary adenopathy. IMPRESSION: 1. Benign underlying cysts in the right breast correlate with mammogram findings. 2. Annual bilateral mammographic screening is recommended unless otherwise clinically indicated. ASSESSMENT: BI-RADS Category 2: Benign.
--- OUTSIDE RECORDS SUMMARY | 2025-02-05 13:56 | XMS_ITS | Patient Health Record ---
Author Organization [facility] Address [address] [place] [address] Care Team Providers Care Metal Rolling Mill Operator Name Role Phone Cathi Malin Unavailable [phone] Allergies Allergen (clinical drug ingredient) Drug/Non Drug [...] Hyperglycemia due to type 2 diabetes mellitus (692814841269823) Type 2 diabetes mellitus with hyperglycemia (E11.65) Active confirmed Problem Type 2 diabetes mellitus with other specified complication (E11.69) Active confirmed Problem Vitamin D deficiency (59356422) Vitamin D deficiency, unspecified (E55.9) Active confirmed Problem Mixed hyperlipidemia (027352347) Mixed hyperlipidemia (E78.2) Active confirmed Problem Hypomagnesemia (147408752) Hypomagnesemia (E83.42) Active confirmed Problem Hypokalemia (84410823) Hypokalemia (E87.6) Active confirmed Problem Long-term current use of insulin (463946929) [facility]CI (current) use of insulin (Z79.4) Active confirmed Problem Essential hypertension (09852628) Essential hypertension (I10) Active confirmed Problem COPD - Chronic obstructive pulmonary disease (28066060) Chronic obstructive pulmonary disease, unspecified COPD type (J44.9) Active confirmed Problem Acute exacerbation of chronic obstructive airways disease (846012031) COPD exacerbation (J44.1) Active confirmed Problem Gastroesophageal reflux disease (256037058) GERD without esophagitis (K21.9) Active confirmed Problem Heart failure (76924767) Chronic congestive heart failure, unspecified heart failure type (I50.9) Active confirmed Plan Of Treatment Pending Test Test Name Order Date Comp. Metabolic Panel (14) 05/23/2023 COMPREHENSIVE METABOLIC PANEL (28123) Insurance Providers Payer Name Payer Address Payer Phone Subscriber Number Group Number Insured Name Patient Relationship to Insured Coverage Start Date Coverage End Date SYLVIE/CATHY [facility] ADVANTAGE [address] [place] [id number] NOY COOK Self - patient is [...]
--- OUTSIDE RECORDS SUMMARY | 2025-02-05 13:56 | XMS_ITS | Encounter Summary ---
Author Organization [facility] Address [address] [place] [address] Care Team Providers Care Police Captain Senior Name Role Phone Yenifer Butler Primary Care Provider Reason for Visit * Reason Comments Med Refill Encounter Details Date Type Department Care Team (Late st Contact Info) Description 11/12/2021 Refill [facility] CARDIOLOGY [address] [facility] [address] [place] [address] Eladia Perdomo PA-C [address] [facility] [address] [place] [address] Med Refill Social History Tobacco [...] on filedocumented in this encounter Care Teams Police Captain Senior Relationship Specialty Start Date End Date Yenifer Butler PA [address] [address] PCP - General Physician Rice Farmer 11/27/23 documented as of this encounter
--- OUTSIDE RECORDS SUMMARY | 2025-02-05 13:56 | XMS_ITS | Clinical Summary ---
Author Organization [facility] Address [address] [place] [address] Care Team Providers Care Towel Hemmer Name Role Phone Yenifer Butler Primary Care Provider [phone] Allergies Active Allergy Reactions Criticality Noted Date [...] WENDY or left ICA. e. Implantation of Affymax reveal link loop recorder, 04/05/[address] Paris. CAD (coronary artery disease) 02/11/2016 Overview (01/13/2019): 1. Left heart catheterization, July 2014: Distal LAD disease, medical management. 2. [facility] 01-06-19: Normal left ventriculogram. Normal iFR associated with 60% mid segment LAD narrowing. Unable to wire and equivocal stenosis in the ostium of the first marginal artery. 3. [facility] 01-13-19: Coronary artery disease, nonobstructive, as [...] Immunizations Immunization Administration Dates Next Due COVID-19 (Sape) 07/29/2020 Family History Medical History Relation Name [...] 06/05/2017, 0 06/05/2017, 06/05/2017, Additional history exists COVID-19 Vaccine (2 - Jansse n risk series) 08/26/2020 07/29/2020 HEMOGLOBIN A1C 04/14/2021 10/12/2020, 10/0 09/2018, 02/26/2017, Additional history exists INFLUENZA VACCINE 10/31/2024 Medical Devices Implanted Type Area Waste Collection Driver Device Identifier Shelf Expiration Date Model / Serial / Lot Medtronic Linq Cardiac Loop Recoder-2015 Implanted: by Claudia Paris MD (Quantity not on file) Implant MED[employer] [id number] / [id number] / Description:1.5T/3T 2500 Gauss/cm 200 T/m/s or less gradient slew rate Info from OP report in EPIC Reload Stplr Lnr Cut Prox 75mm Jm Tcr75 - [id number] Implanted:Qty : 2 on 10/14/2020 by Rashid Syed MD at [facility] Implant N/A: Sigmoid Colon [employer] DIV OF J AND J 05/02/2025 TCR75 / / [id number] Stplr Lnr Cut Prox 75mm Jm Tlc75 - [id number] Implanted:Qty : 1 on 10/14/2020 by Rashid Syed MD at [facility] Implant N/A: Sigmoid Colon [employer] DIV OF J AND J 06/30/2025 TLC75 / / [id number] Stplr Lnr Cut 60mm Grn Ta60 Tx60g - [id number] Implanted:Qty : 1 on 10/14/2020 by Rashid Syed MD at [facility] Implant N/A: Sigmoid Colon [employer] DIV OF J AND J 05/30/2025 [id number] / / [id number] Clipapplr M/ Endo Ligaclip 13in Lg - [id number] Implanted:Qty : 1 on 10/14/2020 by Rashid Syed MD at [facility] Implant N/A: Sigmoid Colon [employer] DIV OF J AND J MCL20 / / NA Reload [place] Endopath Gst 45mm Wht - [id number] Implanted:Qty : 1 on 10/14/2020 by Rashid Syed MD at [facility] Implant N/A: Sigmoid Colon [employer] DIV OF J AND J 07/01/2023 [id number] / / [id number] Reload [place] Endopath Gst 45mm Wht - [id number] Implanted:Qty : 1 on 10/14/2020 by Rashid Syed MD at [facility] Implant N/A: Sigmoid Colon [employer] DIV OF J AND J 05/31/2023 [id number] / / [id number] Procedures Procedure Name Priority Date/Time Associated Diagnosis Comments HEMOGLOBIN A1C Routine 10/12/2020 3:09 PM EDT MICROALBUMIN / CREATININE URINE RATIO Routine 02/26/2017 1:02 PM EST Type 2 diabetes mellitus without complication, unspecified roasterman insulin use status ([facility]) from Last 3 Months or Most Recently Relevant to Health Maintenance Results * (ABNORMAL) Hemoglobin A1c (10/12/2020 3:09 PM EDT) Hemoglobin A1C 8.40(H) 4.80 - 5.60 % 10/12/2020 4:43 PM EDT [facility] Blood Venipuncture / Unknown 10/12/2020 3:09 PM EDT 10/12/2020 3:34 PM EDT Narrative [facility] - 10/12/2020 4:43 PM EDT Hemoglobin A1C Ranges: Increased Risk for Diabetes 5.7% to 6.4% Diabetes >= 6.5% Diabetic Goal < 7.0% us Rashid Syed MD LAB BLOOD ORDERABLES Final Resu lt [facility]
[address] [place] [address], * Microalbumin / Creatinine Urine Ratio - [...] AM EST Performed at: 01 - [facility] [address] [id number] Cold Working Inspector: Manuel Faustin PhD, Phone: [phone] Jane Jaffe PA-C URINE ORDERABLES Final Res ult [facility] [address] [place] [id number], from Last 3 Months or Most Recently Relevant to Health Maintenance Insurance [employer] PPO Advance Directives * CPR [...] Of Support Discussed With: Patient Care Teams Towel Hemmer Relationship Specialty Start Date End Date Yenifer Butler PA [address] [place] [address] PCP - General Physician Pedigree Tracer 11/27/23
--- OUTSIDE RECORDS SUMMARY | 2025-02-05 13:56 | XMS_ITS | Encounter Summary ---
Author Organization [facility] Address [address] [place] [address] Care Team Providers Care Coin Machine Supervisor Name Role Phone Yenifer Butler Primary Care Provider [phone] Reason for Visit * Reason Onset Date Comments Med Refill 08/03/2020 Encounter Details Date Type Department Care Team (Late st Contact Info) Description 08/03/2020 Refill [facility] [address] [place] [phone] Eladia Perdomo PA-C [address] [facility] [address] [place] [address] Med Refill Social History Tobacco [...] documented as of this encounter Care Teams Coin Machine Supervisor Relationship Specialty Start Date End Date Yenifer Butelr PA [address] [place] [address] PCP - General Physician Cattle Dehorner 11/27/23 documented as of this encounter
--- OUTSIDE RECORDS SUMMARY | 2025-02-05 13:56 | XMS_ITS | Patient Health Record ---
Author Organization Vladislav Brady MD Address [address] [place] [id number] Care Team Providers Care Box Brander Name Role Phone Vladislav Brady Primary Care Provider Vladislav Brady MD Unavailable [phone] Allergies Allergen (clinical drug ingredient) Drug/Non Drug [...] Notes Problem Diabetes mellitus type 2 (disorder) (95778666) DM II (250.00) Active confirmed Low Problem Obstructive sleep apnea syndrome (disorder) (03434555) Obstructive sleep apnea (adult) (pediatric) (327.23) Active confirmed Problem Edema (90589555) Edema (782.3) Active confirmed Problem Hyperlipidemia (60174686) Hyperlipidemia (272.4) Active confirmed Problem Hypertension (96649709) Hypertension (401.9) Active confirmed Problem Diabetes mellitus type 2 (disorder) (94984690) DM II (250.00) Active confirmed Problem Fatigue (48543578) Fatigue (780.79) Active confirmed Problem Headache (23648863) Headache (784.0) Active confirmed Plan Of Treatment Pending Test Test Name Order Date glucose, blood by finger stick 1 Comprehensive Metabolic Panel w/EGFR Insurance Providers Payer Name Payer Address Payer Phone Subscriber Number Group Number Insured Name Patient Relationship to Insured Coverage Start Date Coverage End Date [employer] PPO [address] [address] [place] [phone] [id number] Elizabeth Montes Self - patient is the insured Medications Administered Medication Instructions Date of Administration Dosage Notes Ceftriaxone 11/28/2010 1 g Medical (General) History Medical History History ICD Code childbirth x 3 eclampsia, last hypertension panic attacks diabetes umbilical hernia kidney stone Surgical History Surgery Date(Month/Year) WILBERT BARROW, Dr. Guzman, [facility] 1995 wisdom teeth removed at age 13 tubal ligation, Dr. Brian Lr, [facility] 1977 Tonsillectomy as child double hernia repair, Dr. Hebert [facility] 2005
--- OUTSIDE RECORDS SUMMARY | 2025-02-05 13:56 | XMS_ITS | Clinical Summary ---
Author Organization Healthcare Address [address] [place] [address] Care Team Providers Care Apprentice Painter Neckties Name Role Phone Unavailable Primary Care Provider [...]
--- OUTSIDE RECORDS SUMMARY | 2025-02-05 13:56 | XMS_ITS | Encounter Summary ---
Author Organization [facility] Address [address] [place] [address] Care Team Providers Care Hotel Maintenance Engineer Name Role Phone Yenifer Butler Primary Care Provider Reason for Visit * Reason Onset Date Comments Med Refill 04/20/2020 Encounter Details Date Type Department Care Team (Late st Contact Info) Description 04/20/2020 Refill [facility] [address] [place] [phone] Eladia Perdomo PA-C [address] [facility] [address] [place] [address] Med Refill Social History Tobacco [...] documented as of this encounter Care Teams Hotel Maintenance Engineer Relationship Specialty Start Date End Date Yenifer Butler PA [address] [place] [address] PCP - General Physician Corporate Licensed Broker 11/27/23 documented as of this encounter
--- OUTSIDE RECORDS SUMMARY | 2025-02-05 13:56 | XMS_ITS | Patient Health Record ---
Author Organization [facility] Address [address] [place] [address] Care Team Providers Care Time Signal Wirer Name Role Phone BETSY RICHARDS Unavailable [phone] SUSIEGARY DAMONNDRE Unavailable Unavailable Allergies Allergen (clinical drug ingredient) Drug/Non Drug Allergy documented on EMR Reaction Allergy Type Onset Date Status morphine Morphine Unknown Drug Allergy Active sulfacetamide Sulfacetamide Unknown Drug Allergy Active Reason For Referral No Information Problems Problem Type SNOMED Code ICD Code Onset Dates Problem Status W/U Status Risk Notes Problem Diastolic heart failure (403486578) CHF, diastolic (I50.30) Active confirmed Problem Gastroesophageal reflux disease (769469871) GERD without esophagitis (K21.9) Active confirmed Problem 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 [address] [place] [address] [id number] Self - patient is the insured Medical (General) History Medical History History ICD Code DIABETES TYPE 2 HEART DISEAS HYPERTENSION COPD STROKE ANXIETY ESSENTIAL TREMOIS DEPRESSION WATER RETENSION SINUSITIS GERD SLEEP APNEA HIGH CHOLESTEROL THALAMIC PAIN SYNDROME MOVEMENT DISORDER Surgical History Surgery Date(Month/Year) TONSILLECTOMY WISDOM TEETH TUBAL LIGATION HEART CATH
== END 2025-02-05 23:59 | disposition home or self-care (01) ==
LOC: RAD 13:49
PROVIDERS: PCP Internal Medicine; Visit Provider Internal Medicine
DX: N60.01 Solitary cyst of right breast (principal); R92.321 Mammographic fibroglandular density, right breast
CPT/HCPCS: 76641; 77061; 77065; G0279